=== PATIENT | female | born 1955 | race Caucasian/White ===

== ENCOUNTER 2023-02-24 13:38 | Emergency (ER) | payer SELFPAY ==
[2023-02-24 14:23] VITALS: BP 160/116; PULSE 78; RESP 16; TEMP 37.1; O2SAT 97
--- NOTE | 2023-02-24 16:45 | PC.NURSE ---
no answer when called from waiting room multiple times.
== END 2023-02-24 17:30 | disposition left against medical advice (07) ==
LOC: ANHED 16:51
DX: Z53.21 Procedure and treatment not carried out due to patient leaving prior to being seen by health care provider (principal)
CPT/HCPCS: 99199

== ENCOUNTER 2023-05-02 11:03 | Inpatient (IN) | payer MEDICARE, MEDICAID, SELFPAY ==
[2023-05-02] VITALS (52 sets, daily range): BP systolic 57–271; BP diastolic 43–212; PULSE 60–102; RESP 15–41; TEMP 35.4–37; O2SAT 94–100; BMI 18.1
--- NOTE | ~2023-05-02 | XR_ITS ---
XR chest ET placement 05/02/2023 14:28 Indication: Endotracheal tube placement Procedure: AP portable chest Comparison: 05/02/2023 Findings: Endotracheal tube tip 3.5 cm above the michelle. Cardiomegaly. There is pulmonary edema. Bila teral pleural effusions, left greater than right. No pneumothorax. NG tube passes into the stomach, t ip not evaluated. There is consolidation in the left lung base which may represent atelectasis and/or pneumonia. Impression: 1: Left basilar airspace consolidation which may represent pneumonia and/or atelectasis. 2: Cardiomegaly with pulmonary edema. 3: Bilateral pleural effusions, left greater than right. Reviewed, dictated and finalized at location B. TING SALES REPRESENTATIVE Impression: 1: Left basilar airspace consolidation which may represent pneumonia and/or ate lectasis. 2: Cardiomegaly with pulmonary edema. 3: Bilateral pleural effusions, left greater than right.
--- NOTE | ~2023-05-02 | XR_ITS ---
Portable chest x-ray Comparison: 1023 Clinical History: Respiratory failure Findings: Stable right IJ line. [id number] bilateral pleural effusions are present. There is interstitial pulmonary edema and/or chronic interstitial disease/COPD Cardiomediastinal silhouette i s stable, with pacemaker device. Bones and soft tissues are unremarkable. Impression: [id number] bilateral pleural effusions with bibasilar atelectasis. Chronic interstitial disease/COPD change and/or interstitial edema. Stable support line and pacemaker device. Reviewed, dictated and finalized at location M. E HAND Impression: [id number] bilateral pleural effusions with bibasilar atelectasis. Chronic interstitial disease/COPD change and/or interstitial edema. Stable support line and pacemaker device.
--- NOTE | ~2023-05-02 | XR_ITS ---
XR chest 1V portable 05/02/2023 11:54 Indication: Shortness of breath Procedure: AP portable chest Comparison: No prior studies for comparison. Findings: Cardiomegaly. There is pulmonary edema. Bilateral pleural effusions. No pneumothorax. Pacem chapincito leads in expected position. Impression: 1: Cardiomegaly with pulmonary edema. 2: Bilateral pleural effusions. Reviewed, dictated and finalized at location B. IAL EDUCATION RESOURCE TEACHER Impression: 1: Cardiomegaly with pulmonary edema. 2: Bilateral pleural effusions.
--- NOTE | ~2023-05-02 | XR_ITS ---
EXAMINATION: XR chest 1V portable INDICATION: Respiratory failure TECHNIQUE: Portable AP chest at 0532 hours COMPARISON: 05/03/2023 FINDINGS: The endotracheal tube ends approximately 2.9 cm above the michelle. The nasogastric tube is f ollowed as far as the stomach. Its tip is beyond the inferior margin of the radiograph. A right inter nal jugular central venous catheter ends with its tip in the distal superior vena cava. An endovascul ar stent is noted in right neck. There are small stable pleural effusions. Diffuse interstitial opaci ties persist but continued to improve. There is no pneumothorax. A dual-lead cardiac pacemaker of the left chest wall ends with leads in expected locations. Cardiomegaly is noted. IMPRESSION: 1. Diffuse lung disease with continued interval improvement, consistent with pneumonia versus pulmona ry edema. 2. Small pleural effusions, stable. 3. Cardiomegaly. Reviewed, dictated and finalized at location F. UNCTURIST IMPRESSION: 1. Diffuse lung disease with continued interval improvement, consistent with pn eumonia versus pulmonary edema. 2. Small pleural effusions, stable. 3. Cardiomegaly.
--- NOTE | ~2023-05-02 | XR_ITS ---
XR abdomen gastric tube insert INDICATION: Evaluate NG tube position. TECHNIQUE: Limited KUB perform for evaluating NG tube . COMPARISON: No prior studies for comparison. FINDINGS: NG tube tip in the stomach. Visualized bowel gas pattern is unremarkable.There are surgica l changes of ventral hernia repair. There is extensive atherosclerosis of the aorta. There are stents in the upper abdomen, likely renal artery stents. IMPRESSION: 1: NG tube tip in the stomach. Reviewed, dictated and finalized at location B. TIONAL REHABILITATION SUPERVISOR
--- NOTE | ~2023-05-02 | XR_ITS ---
EXAMINATION: XR chest port-a-cath/central DATE: 05/02/2023 15:58 INDICATION: Central line placement. TECHNIQUE: A single frontal view of the chest was obtained. COMPARISON: Chest single view at 2:26 PM FINDINGS: There are small right and moderate-sized left pleural effusions. There are widespread inter stitial and airspace opacities in the lungs with a perihilar and left basilar predominance. No pneumo thorax. Cardiomegaly is noted. There is a left chest wall pacer with leads in the right atrium and ri ght ventricle. The endotracheal tube tip is 4.0 cm above the michelle. A right internal jugular central venous catheter is seen with tip in the superior vena cava. IMPRESSION: 1. Central line tip in the superior vena cava. 2. Stable diffuse lung disease, consistent with pulmonary edema versus pneumonia. 3. Stable small right and moderate-sized left pleural effusions. 4. Cardiomegaly. Reviewed, dictated and finalized at location E. LE CLEANER IMPRESSION: 1. Central line tip in the superior vena cava. 2. Stable diffuse lung disease, consistent with pulmonary edema versus pneumoni a. 3. Stable small right and moderate-sized left pleural effusions. 4. Cardiomegaly.
--- NOTE | ~2023-05-02 | XR_ITS ---
EXAMINATION: XR chest 1V portable INDICATION: Respiratory failure TECHNIQUE: Portable AP chest at 0538 hours COMPARISON: 05/02/2023 FINDINGS: The endotracheal tube ends approximately 3.3 cm above the michelle. The nasogastric tube is f ollowed as far as the stomach. Its tip is beyond the inferior margin of the radiograph. A right inter nal jugular catheter ends with its tip in the distal superior vena cava. A small right pleural effusi on persists but has improved. There is also interval decrease in size of a now small left pleural eff usion. Diffuse interstitial opacities persist with slight improvement. There is no pneumothorax. Card iomegaly is noted. There are minimal airspace opacities of the lung bases. A dual-lead cardiac pacema ker of the left chest wall ends with leads in expected locations. IMPRESSION: 1. Diffuse lung disease with interval improvement, consistent with pneumonia versus pulmonary edema. 2. Small pleural effusions with improvement on the left. 3. Cardiomegaly. Reviewed, dictated and finalized at location F. ITAL MEDICAL BILLER IMPRESSION: 1. Diffuse lung disease with interval improvement, consistent with pneumonia ve rsus pulmonary edema. 2. Small pleural effusions with improvement on the left. 3. Cardiomegaly.
--- NOTE | 2023-05-02 11:06 | ECG_ITS ---
Measurements Intervals [place] Rate: 77 P: 50 NH: 205 QRS: -70 QRSD: 102 T: 98 QT: 419 QTc: 475 Interpretive Statements SINUS RHYTHM LEFT AXIS DEVIATION POSSIBLE ANTERIOR MYOCARDIAL INFARCTION , OF INDETERMINATE AGE Electronically Signed On 05-03-2023 13:02:01 PACKAGE DYE STAND LOADER by Terrence Sequeira M.D.
--- NOTE | 2023-05-02 11:08 | ED.SOB ---
HPI - SOB/Dyspnea General Chief Complaint: Shortness of Breath/Dyspnea Stated Complaint: sob History of Present Illness HPI Narrative: 67-year-old female with history of coronary disease and end-stage renal disease presented the emergency department for evaluation of shortness of breath. Patient was at dialysis and had worsening shortness of breath. EMS was called and patient was placed on CPAP and transferred to [facility] from [place]. patient reports she does dialysis on Friday and Friday. Patient did have dialysis on Friday was having dialysis today. Patient only had approximately 1 hour of dialysis prior to having worsening shortness of breath. Related Data Allergies Allergy/AdvReac Type Severity Reaction Status Date / Time amlodipine AdvReac Unknown Verified 05/02/23 12:09 Review of Systems Review of Systems: All systems reviewed & are unremarkable except as noted in HPI and below [facility] Social History Social History Smoking status: Unknown if ever smoked Alcohol intake: unknown Substance use: unknown Substance use type: unknown Spiritual care concerns: No Exam Narrative: APPEARANCE: uncomfortable appearing HEAD: normocephalic, atraumatic. EYES: PERRLA/EOMI, conjunctivae clear. NOSE: Normal no drainage EARS:TMS clear with good light reflex. THROAT: Pharynx clear, no exudate. NECK: Supple. No adenopathy, no masses. RESPIRATORY: Airway patent, respirations nonlabored. Clear to auscultation bilaterally, no rales, rhonchi, wheezing. CARDIOVASCULAR: Regular rate and rhythm without murmurs rubs or gallops. ABDOMINAL: Soft, nontender, nondistended, normal bowel sounds MUSCULOSKELETAL: Moves all extremities. Strength/ROM intact, No edema, No calf tenderness. NEURO: Alert. Cranial nerves II through XII intact. grossly intact SKIN: Warm, dry. Normal Color Course Course Emergency Course: 67-year-old female with end-stage renal disease presenting ED for evaluation of worsening shortness of breath. Patient arrived on CPAP and was transferred to [facility]. Patient was not tolerating BiPAP due to anxiety. Tried multiple doses of Ativan to help with her anxiety the patient continued to deteriorate. Patient ultimately needed to be intubated. central line was placed and patient was admitted to the ICU. I discussed the case with Nephrology and patient will have emergent dialysis. Suspect fluid overload versus flash pulmonary edema. Vital Signs Vital signs: Vital Signs Pulse Rate 87 05/02/23 11:15 Respiratory Rate 32 H 05/02/23 11:15 Pulse Oximetry 94 05/02/23 11:15 Oxygen Delivery BiPAP 05/02/23 11:15 Temperature 97.8 F 05/02/23 17:10 Pulse Rate 76 05/02/23 18:45 Respiratory Rate 16 05/02/23 18:00 Blood Pressure 213/113 H 05/02/23 18:45 Pulse Oximetry 94 05/02/23 18:00 Oxygen Delivery Mechanical Ventilation 05/02/23 17:02 Oxygen Flow Rate 4 05/02/23 13:01 Fraction of Inspired Oxygen 50 05/02/23 17:28 Procedures Central Line Placement Right IJ: Central Line Time: 15:43 Performed Emergently - Given emergent patient condition, temporal constraints may have precluded informed consent.: Yes Time Out Performed: Yes Patient Placed on Monitor/Pulse Ox: Yes Max. Sterile Barrier Technique: Caps, large sterile sheet and hand hygiene Central Line Prep: 2% chlorhexidine scrub and sterile drapes applied Technique: US-Guided Local Anesthetic: lidocaine 1% Amount of anesthesia used (mL): 5 Ultrasound Used for Placement: Yes Central Line Lumen Inserted: triple Post Procedure: sutured in place Post Procedure X-Ray: tip of catheter in good position Patient Tolerated Procedure: well and no complications Intubation Intubation #1: Time out performed: Yes sedative: Etomidate Mg Given: 20 paralytic: Rocuronium Mg Given: 50
[2023-05-02] MEDS: ALBUTEROL SULFATE NEB 2.5 MG/3 ML INH INHALATION ×3 (11:29→12:01)
--- NOTE | 2023-05-02 11:45 | PCRCNOTE ---
PT. DECLINED ABG; DR. WANG AWARE.
[2023-05-02 11:57] LABS: Basophils Absolute Auto 0.1 K/mm3 (0.0-0.1); Eosinophils Absolute Auto 0.6 K/mm3 (0-0.3); Eosinophils Percent Auto 9.5 % (0-4.4); Hematocrit 38.1 % (37.0-47.0); Hemoglobin 11.8 g/dL (12.0-15.0); Immature Granulocyte Absolute 0.02 K/mm3 (0.00-0.031); Immature Granulocyte Percent A 0.3 % (0-0.5); Lymphocytes Absolute Auto 0.94 K/mm3 (0.9-3.2); Mean Corpuscular Hemoglobin 31.1 pg (26-34); Mean Corpuscular Volume 100.5 fl (80-100); Mean Platelet Volume 10.6 fl (7.4-10.4); Monocytes Absolute Auto 0.4 K/mm3 (0.1-0.6); Monocytes Percent Auto 6.3 % (2.6-8.5); Neutrophils Absolute Auto 4.6 K/mm3 (1.3-6.7); Neutrophils Percent Auto 68.9 % (45.5-73.1); Platelet Count Result 259 k/mm3 (150-375); Red Blood Count 3.79 M/mm3 (4.2-5.4); Red Cell Distribution Width 16.9 % (11.5-14.5); White Blood Count 6.7 K/mm3 (4.5-10.0)
[2023-05-02 12:09] LABS: Alanine Aminotransferase 12 U/L (6-35); Albumin Level 3.9 g/dL (3.5-5.1); Alkaline Phosphatase 132 U/L (38-126); Anion Gap 12 mmol/L (8-16); Aspartate Amino Transferase 21 U/L (14-36); Bilirubin,Total 1.1 mg/dL (0.2-1.3); Blood Urea Nitrogen 41 mg/dL (7-17); Calcium 9.4 mg/dL (8.4-10.2); Carbon Dioxide 28 mmol/L (22-30); Chloride 100 mmol/L (98-107); Estimated CRCL calculation 9 ml/min; Estimated Glomerular Filt Rate 10; Glucose 110 mg/dL (65-110); Potassium 3.8 mmol/L (3.4-5.0); Sodium 140 mmol/L (137-145)
[2023-05-02 12:20] LABS: Troponin I 0.036 ng/mL (0.000-0.034)
[2023-05-02 12:33] LABS: Influenza A QL RT-PCR Negative (Negative); Influenza B QL RT-PCR Negative (Negative); RSV RNA, RT-PCR Negative (Negative); SARS-CoV-2 RNA PCR Negative (Negative)
[2023-05-02] MEDS: hydrALAZINE HCL 20 MG/ML VIAL 10 MG IV PUSH (12:33)
[2023-05-02] MEDS: LORazepam INJ (*CRX) 2 MG/ML VIAL 1 MG IV PUSH ×2 (13:08→13:34)
--- NOTE | 2023-05-02 13:08 | PC.NURSE ---
lorazepam given for anxiety, pt requesting BIPAP back on resp notified
[2023-05-02 13:37] LABS: Hepatitis B Surface Antigen Negative (Negative)
[2023-05-02 13:54] LABS: Hepatitis B Surface Antibody > 1000.00 s/c
[2023-05-02 13:59] LABS: Hepatitis B Surface Anti Res Positive
--- NOTE | 2023-05-02 14:00 | PC.NURSE ---
EDP at bedside setting up intubation. Pt being bagged. Pt refused bipap. Pt non compliant with bi pap. 50Roc being given.
--- NOTE | 2023-05-02 14:03 | PC.NURSE ---
Hospitalist at bedside. 20mg of etomide given. 7.5 trach tube inserted. 2O at the lip. Pt tolerated well.
[2023-05-02] MEDS: PROPOFOL IV EMULSION 100 ML 1.44 MG IV CONT (14:10)
--- NOTE | 2023-05-02 14:10 | PC.NURSE ---
NG inserted 60 at the lip. Propofol started. [place] cath inserted.
--- NOTE | 2023-05-02 14:11 | PC.NURSE ---
Soft restraints applied.
--- NOTE | 2023-05-02 14:19 | WPDCNINT ---
Assessment and Plan Assessment and plan (1) Acute respiratory failure: Code(s): J96.00 - Acute respiratory failure, unspecified whether with hypoxia or hypercapnia Status: Acute Assessment and Plan: Acute Respiratory failure secondary to pulmonary edema and volume overload Patient was not tolerating NIPPv and had to be emergently intubated in the ER WBC normal and chest x-ray showed bilateral pleural effusions and pulmonary edema Patient placed on CMV tidal volume 400 rate 20 peep 10 and FiO2 100% ABG pending Plan to dialyze today and remove fluid Bronchodilators (2) Pulmonary edema: Code(s): J81.1 - Chronic pulmonary edema Status: Acute Assessment and Plan: Patient's chest x-ray shows pulmonary edema and pleural effusion Likely combination of end-stage renal disease with incomplete dialysis and possible congestive heart failure Plan to dialyze patient today Check echocardiogram and BNP (3) End stage renal disease on dialysis: Code(s): N18.6 - End stage renal disease; Z99.2 - Dependence on renal dialysis Status: Acute Assessment and Plan: Nephrology consulted (4) Hypertensive emergency: Code(s): I16.1 - Hypertensive emergency Status: Acute Assessment and Plan: Patient blood pressure above 200 on presentation. She was in respiratory distress Now patient is intubated and sedated and expect blood pressure to come down. Depending on her blood pressure we will add additional medications IV p.r.n. or IV infusion (5) Elevated troponin: Code(s): R79.89 - Other specified abnormal findings of blood chemistry Status: Acute Assessment and Plan: Patient has mildly elevated troponin which could be demand mediated ischemia EKG does not show any ST elevation Patient does have history of coronary disease although details are unknown at this time Add aspirin serial troponin Plan DVT prophylaxis -SCDs Stress ulcer prophylaxis -PPI Nutrition -NPO Code Status - Full Code Total Critical Care Time - 40 minutes Due to a high probability of clinically significant, life threatening deterioration, the patient required my highest level of preparedness to intervene emergently and I personally spent this critical care time directly and personally managing the patient. This critical care time included obtaining a history; examining the patient; pulse oximetry; ordering and review of studies; arranging urgent treatment with development of a management plan; evaluation of patient's response to treatment; frequent reassessment; and discussions with other providers. It was exclusive of separately billable procedures and treating other patients and teaching time. Please see Assessment and Plan section and the rest of the note for further information on patient assessment and treatment Logging Engineer Consult Note Consult date: 05/02/23 Reason for consult: Acute respiratory failure HPI: Dina Johnson is a 67 year old female with past medical history of coronary disease and end-stage renal disease on hemodialysis Friday and bilateral below ankle amputation was brought to ER with shortness of breath. History is obtained from physician sign-out from ER and note as I was unable to obtain history directly from the patient as patient was in respiratory distress and was intubated emergently in the ER. Apparently patient did not complete her dialysis today and was sent to [facility]. In ER patient was found to be hypertensive hypoxic and in respiratory distress. She was initially placed on CPAP at that BiPAP without any significant improvement. Patient was delirious agitated and ripping her BiPAP off multiple times and trying to get out of bed. Patient was given multiple dose of Ativan without any significant improvement. Patient was confused. When I went to see the patient patient was holding her BiPAP mask in her hand and yelling that she could not br
--- NOTE | 2023-05-02 14:47 | PCRCNOTE ---
Dr. Stone aware Pt. has Fistulas in both arms; Dr. Stone states to stick Pt. in the right arm for the ABG.
[2023-05-02 14:51] LABS: NT Pro B Type Natriuretic Pept > 30000 pg/mL (19.9-100)
[2023-05-02 14:58] LABS: Procalcitonin 0.3 ng/mL
--- NOTE | 2023-05-02 15:10 | PM.IMHP ---
H&P: HPI History of Present Illness Date/Time: 05/02/23 15:10 Chief Complaint: SOB Narrative: 67 y/o F presented here with SOB with PMH of CAD, transmetatarsal amputation bilaterally, and ESRD on HD (M/W/F). History obtained through chart review and ED provider report due to emergent and activation. Patient currently receives dialysis at [facility] in [place], during treatment she became more short of breath with increased breathing. She was only able to complete 1 hour of dialysis before shortness of breath was not tolerable. She reported that she had not felt well for a few days prior to dialysis treatment. EMS placed patient on CPAP and she was transferred to [place] ED. After arrival she was transferred to BiPAP. She was able to briefly tolerate before becoming anxious. Multiple doses of Ativan attempted to alleviate anxiety but patient was ultimately not able to tolerate BiPAP, continuing to take off mask. Work of breathing increased and patient became agitated. Due to deterioration, patient was intubated and central line was placed. Admitted to the ICU for HD and ventilator support. Patient has not received care at this facility prior to today. Was A&Ox4 prior to intubation/sedation. [facility] Past Medical History Medical History CAD (coronary atherosclerotic disease) End stage renal disease on dialysis Surgical History Surgical History History of arteriovenostomy for renal dialysis bilateral History of transmetatarsal amputation of left foot History of transmetatarsal amputation of right foot Family History Family History Other Unknown family medical history Social History Social History Smoking status: Unknown if ever smoked Alcohol intake: unknown Substance use: unknown Substance use type: unknown Spiritual care concerns: No Meds Home Medications and Allergies Allergies Allergy/AdvReac Type Severity Reaction Status Date / Time amlodipine AdvReac Unknown Verified 05/02/23 12:09 Vital Signs Vital Signs - 24 hr 05/02/23 11:15 05/02/23 11:26 05/02/23 11:42 Temperature 98.0 F Pulse Rate 87 78 Respiratory Rate 32 H 16 Blood Pressure 207/105 H Pulse Oximetry 94 100 Oxygen Delivery BiPAP Room Air BiPAP Oxygen Flow Rate Fraction of Inspired Oxygen 05/02/23 11:29 05/02/23 12:08 05/02/23 11:34 Temperature 97.8 F Pulse Rate 79 78 85 Respiratory Rate 18 16 22 H Blood Pressure 230/98 H 220/108 H Pulse Oximetry 99 98 Oxygen Delivery Oxygen Flow Rate Fraction of Inspired Oxygen 05/02/23 12:20 05/02/23 12:24 05/02/23 12:37 Temperature Pulse Rate 79 82 78 Respiratory Rate 20 24 H 23 H Blood Pressure 229/123 H Pulse Oximetry 94 95 Oxygen Delivery BiPAP Oxygen Flow Rate Fraction of Inspired Oxygen 05/02/23 13:01 05/02/23 13:20 05/02/23 14:15 Temperature Pulse Rate 86 79 Respiratory Rate 41 H Blood Pressure Pulse Oximetry 98 97 100 Oxygen Delivery Nasal Cannula BiPAP Mechanical Ventilation Oxygen Flow Rate 4 Fraction of Inspired Oxygen 100 Exam Const: Other: In distress, agitated, uncomfortable prior to intubation. Post intubation and sedation: No acute distress or signs of discomfort. HENMT: Face/Nose/Sinus: Normal nares present Mouth: Yes moist mucous membranes Eyes: General: appearance normal, both eyes and all related structures Sclera: sclerae normal Pupils: Equal, round and reactive pupils present EOM: EOMs intact bilaterally Resp: Other: +Respiratory distress with associated accessory muscle use and agitation prior to intubation. Currently intubated - coarse lung sounds, bibasilar crackles, decreased at bases. Cardio: Rate: tachycardic Rhythm: regular rhyth
[2023-05-02 15:11] LABS: Alveolar/Arterial O2 Gradient 376.6 mmHg; Base Excess ABG 2.2 mEq/l (+/-2.0); Fractional Inspired Oxygen 100 %; Oxygen Content ABG 18.1 %vol (16.0-22.0); Oxygen Saturation ABG 99.7 % (95.0-100.0); Oxyhemoglobin 97.1 % THb (90.0-100.0); PCO2 ABG 42.6 mmHg (35.0-45.0); PO2 ABG 293.8 mmHg (80.0-100.0); PO2 FiO2 Ratio Arterial Blood 2.94 %; Total Hemoglobin 12.7 g/dL (12.0-18.0)
[2023-05-02 15:13] LABS: Device VENTILATOR; Modified Allen's Test Pass; Site Drawn RIGHT RADIAL
[2023-05-02 15:14] LABS: Arterial Blood Gas PEEP 10 cmH2O; Arterial Blood Gas Pressure Support 0 cmH2O; Arterial Blood Gas Tidal Volume 400 ml; Arterial Blood Gas Vent Mode CMV; Arterial Blood Gas Ventilator rate 20 /MIN
--- NOTE | 2023-05-02 15:32 | PM.CNNEP ---
Assessment and Plan Assessment and plan (1) End stage renal disease: Code(s): N18.6 - End stage renal disease Status: Chronic Assessment and Plan: outpatient schedule is Fri/Fri/Fridays only partial treatment earlier today (bout 1 hour and 15min of treatment) however, stable electrolytes and acid-base status given fluid status, DUF today for fluid removal as tolerated depending on CXR and electrolytes, may need HD tomorrow as well follows with Dr. Enzo Shelton at [facility] (2) Acute respiratory failure: Code(s): J96.00 - Acute respiratory failure, unspecified whether with hypoxia or hypercapnia Status: Acute Assessment and Plan: due to pulmonary edema and volume overload admission CXR seems to support this intubated due to intolerance to BiPAP and altered mental status fluid removal with DUF today may need another HD treatment depending on response to DUF today ventilator weaning when more stable (3) Pulmonary edema: Code(s): J81.1 - Chronic pulmonary edema Status: Acute Assessment and Plan: etiology? from my discussion with outatient dialysis unit, compliant with treatments and does not have large fluid gains was pretty close to dry weight on presentation to dialysis treatment today possible flash pulmonary edema due to hypertensive urgency(?) follow-up on echo fluid removal with HD/DUF (4) Hypertensive emergency: Code(s): I16.1 - Hypertensive emergency Status: Acute Assessment and Plan: blood pressure above 200 on presentation this was associated with respiratory distress now intubated and sedated -- suspect BP will improve follow hemodynamics with mechanical ventilation and dialysis/DUF today (5) Elevated troponin: Code(s): R79.89 - Other specified abnormal findings of blood chemistry Status: Acute Assessment and Plan: noted on admission suspect demand mediated ischemia from elevated BP and respiratory failure EKG without ischemic changes follow repeat troponins (6) Anemia: Code(s): D64.9 - Anemia, unspecified Status: Chronic Assessment and Plan: due to ESRD H/H at goal if no supratherapeutic hold Epogen for now follow trend of H/H I will continue follow the patient with you while she remains hospitalized and make further recommendations as needed. Thank you for allowing me to participate in the care this patient. History of Present Illness Reason for Consult Consult date: 05/02/23 Reason for consult: end stage renal disease Chief Complaint Chief complaint: HTN/Pulmonary Edema/Hypoxia History of Present Illness Narrative: Most of the information that I have is from review of the electronic medical record, discussion with the ER physician, and discussion with her outpatient dialysis clinic as the patient is unable to provide me with any history as she is currently intubated and on mechanical ventilation. The patient is a 67-year-old female with a past medical history as outlined below who was transferred to [facility] Emergency room from her dialysis center for further evaluation of increasing shortness of breath/respiratory distress. The patient was approximately 1 hr into her outpatient dialysis treatment earlier today when she became increasingly more short of breath and uncomfortable. She reported that she felt unwell prior to initiation of her dialysis treatment today but the specifics are not clear. As her shortness of breath became on tolerable her dialysis treatment was aborted and EMS was called. She was subsequently transferred to [facility] Emergency room for further assessment. In route to the emergency room, EMS applied CPAP in effort to try to stabilize her respiratory status. By the time of her arrival to the emergency room, she was still in mild respiratory distress so CPAP was transitioned over to BiPAP therapy
--- NOTE | 2023-05-02 15:32 | P.CONNP_ITS ---
Assessment and Plan Assessment and plan (1) End stage renal disease: Code(s): N18.6 - End stage renal disease Status: Chronic Assessment and Plan: * outpatient schedule is Fri/Fri/Fridays * only partial treatment earlier today (bout 1 hour and 15min of treatment) * however, stable electrolytes and acid-base status * given fluid status, DUF today for fluid removal as tolerated * depending on CXR and electrolytes, may need HD tomorrow as well * follows with Dr. Enzo Shelton at [facility] (2) Acute respiratory failure: Code(s): J96.00 - Acute respiratory failure, unspecified whether with hypoxia or hypercapnia Status: Acute Assessment and Plan: * due to pulmonary edema and volume overload * admission CXR seems to support this * intubated due to intolerance to BiPAP and altered mental status * fluid removal with DUF today * may need another HD treatment depending on response to DUF today * ventilator weaning when more stable (3) Pulmonary edema: Code(s): J81.1 - Chronic pulmonary edema Status: Acute Assessment and Plan: * etiology? * from my discussion with outatient dialysis unit, compliant with treatments and does not have large fluid gains * was pretty close to dry weight on presentation to dialysis treatment today * possible flash pulmonary edema due to hypertensive urgency(?) * follow-up on echo * fluid removal with HD/DUF (4) Hypertensive emergency: Code(s): I16.1 - Hypertensive emergency Status: Acute Assessment and Plan: * blood pressure above 200 on presentation * this was associated with respiratory distress * now intubated and sedated -- suspect BP will improve * follow hemodynamics with mechanical ventilation and dialysis/DUF today (5) Elevated troponin: Code(s): R79.89 - Other specified abnormal findings of blood chemistry Status: Acute Assessment and Plan: * noted on admission * suspect demand mediated ischemia from elevated BP and respiratory failure * EKG without ischemic changes * follow repeat troponins (6) Anemia: Code(s): D64.9 - Anemia, unspecified Status: Chronic Assessment and Plan: * due to ESRD * H/H at goal if no supratherapeutic * hold Epogen for now * follow trend of H/H I will continue follow the patient with you while she remains hospitalized and make further recommendations as needed. Thank you for allowing me to participate in the care this patient. History of Present Illness Reason for Consult Consult date: 05/02/23 Reason for consult: end stage renal disease Chief Complaint Chief complaint: HTN/Pulmonary Edema/Hypoxia History of Present Illness Narrative: Most of the information that I have is from review of the electronic medical record, discussion with the ER physician, and discussion with her outpatient dialysis clinic as the patient is unable to provide me with any history as she is currently intubated and on mechanical ventilation. The patient is a 67-year-old female with a past medical history as outlined below who was transferred to [facility] Emergency room from her dialysis center for further evaluation of increasing shortness of breath/respiratory distress. The patient was approximately 1 hr into her outpatient dialysis treatment earlier today when she became increasingly more short of breath and uncomfortable. She reported that she felt unwell prior to initiation of her dialysis treatment today but the specifics are not clear. As her shortness of b
[2023-05-02] MEDS: dexmedeTOMIDine 400 MCG/100 ML 400 MCG/100 ML BAG IV CONT (16:03)
--- NOTE | 2023-05-02 16:07 | PC.NURSE ---
Precedex started per JUL. Pt currently sedated, but frequently coughing and high peak pressures despite suctioning with minimal out.
--- NOTE | 2023-05-02 17:38 | ADMGEN ---
This patient, Dina Johnson, was admitted to Intensive Care Unit-7. Patient/family oriented to hospital policies and general routines including ID bracelet, bed and alarms, visiting hours, pain management, procedures, bathroom and other care routines, personal items, smoking policy, room service/diet, and visiting hours. Information on how to activate the Rapid Response Team has been discussed. Patient/Family are encouraged to report perceived risks to care and to ask questions if they do not understand what they are told or what they should do.
--- NOTE | 2023-05-02 17:52 | PC.NURSE ---
Pt sister called pt's cell phone and this nurse talked to sister of condition status, caitlinmily Mills [phone]
[2023-05-02 18:14] LABS: Glucose Point of Care 74 mg/dl (65-105)
[2023-05-02 21:41] LABS: Triglycerides 166 mg/dL (<150)
[2023-05-02] MEDS: MINERAL OIL/WHITE PETROLATUM OINTMENT 1 APPLIC EACH EYE (21:56)
[2023-05-02] MEDS: CENTRAL LINE FLUSH 10 ML IV PUSH (21:56)
[2023-05-02] MEDS: LABETALOL HCL INJ 100 MG/20 ML VIAL 20 MG IV PUSH (21:56)
[2023-05-02 21:58] LABS: Hematocrit 42.2 % (37.0-47.0); Hemoglobin 12.9 g/dL (12.0-15.0); Mean Corpuscular HGB Conc 30.6 g/dl (32-36); Mean Corpuscular Volume 101.4 fl (80-100); Mean Platelet Volume 10.8 fl (7.4-10.4); Platelet Count Result 282 k/mm3 (150-375); Red Blood Count 4.16 M/mm3 (4.2-5.4); Red Cell Distribution Width 16.8 % (11.5-14.5); White Blood Count 9.9 K/mm3 (4.5-10.0)
[2023-05-02 21:59] LABS: Troponin I 0.047 ng/mL (0.000-0.034)
[2023-05-02 22:11] LABS: Fibrinogen 481 mg/dl (215-510); INR 1.1
[2023-05-02] MEDS: CELLULOSE OXIDIZED 2 x 14 INCH 1 PKT XX (22:36)
[2023-05-03] VITALS (54 sets, daily range): BP systolic 65–207; BP diastolic 44–110; PULSE 60–75; RESP 18–39; TEMP 35.3–38.1; O2SAT 91–99
--- NOTE | 2023-05-03 | ECHO_ITS ---
Patient Info Name: Dina Johnson Age: 67 years : 1955 Gender: Female Ht: 64 in Wt: 105 lbs BSA: 1.46 m2 HR: 77 bpm BP: 229 / 123 mmHg Heart Rhythm: Sinus Rhythm Technical Quality: Good Exam Date: 05/03/2023 8:51 AM Exam Location: Echo Lab Patient Status: Inpatient Admit Date: 05/02/2023 Staff Ordering Physician: Pillo Stone MD Denial Management Representative: Diamond Gamino RDCS Attending Provider: Emma Turner MD Exam Type: CA echo doppler color flow Study Info Indications - CHF Complete two-dimensional, color flow and Doppler transthoracic echocardiogram is performed. Summary 1. Complete two-dimensional, color flow and Doppler transthoracic echocardiogram is performed. Recommendations * Normal LV size, severe LV thickening, mild to moderate LV systolic dysfunction, ejection fraction 40-45%; diastolic dysfunction present with elevated left heart pressures. Linear artifact is seen in the RA/RV. Normal RV size and systolic function. Moderate mitral annular calcification. Trace MR. Mild aortic valve calcification, mild aortic stenosis, calculated HARRY 1.8 cm2. Mild tricuspid regurgitation. RVSP 36 mmHg. Left Ventricle Left ventricular systolic function is moderately reduced, estimated at 40-45%. There is severely increased left ventricular wall thickness. The left ventricular diastolic function is abnormal. E/e' 14.9 is abnormal. Right Ventricle Right ventricular chamber dimension is normal. Right ventricular systolic function is normal. Left Atria Left atrial chamber dimension is normal. Right Atria Right atrial chamber dimension is normal. Linear artifact in the right atrium suggestive of catheter(s), pacemaker lead(s), or ICD lead(s). Aortic Valve There is mild aortic valve stenosis with a peak velocity of 126 cm/s, mean gradient of 3 mmHg, and aortic valve area of 1.8 cm2. There is mild aortic valve calcification. Pulmonic Valve The pulmonic valve is normal. Mitral Valve There is trace mitral valve regurgitation. The mitral valve annulus is moderately calcified. Tricuspid Valve The tricuspid valve leaflets are normal. There is mild tricuspid valve regurgitation. Pericardium/Pleural The pericardium appears normal. Aorta The aortic root size at the sinus of Valsalva is normal. Left Ventricular Outflow Tract Name Value Normal LVOT 2D LVOT Diameter 1.8 cm LVOT Doppler LVOT Peak Gradient 3 mmHg LVOT Mean Gradient 1 mmHg LVOT VTI 14 cm LVOT VTI/AV VTI Ratio 0.7 LVOT Stroke Volume 37 ml LVOT CO 2.4 l/min LVOT CI 1.6 l/min/m2 Pulmonic Valve Name Value Normal RVOT Doppler RVOT Peak Gradient 1 mmHg PV Doppler PV Peak Gradien
[2023-05-03] MEDS: LABETALOL HCL INJ 100 MG/20 ML VIAL 20 MG IV PUSH (00:20)
[2023-05-03 00:29] LABS: Glucose Point of Care 79 mg/dl (65-105)
--- NOTE | 2023-05-03 03:28 | PC.NURSE ---
Patient unable to state home meds. Home meds completed using external med history and papers from renal center. If unable to verify medication as being currently filled it was not added to list.
[2023-05-03] MEDS: PROPOFOL IV EMULSION 100 ML 5.76 MG IV CONT (04:44)
[2023-05-03 05:31] LABS: Alveolar/Arterial O2 Gradient 293.5 mmHg; Base Excess ABG 3.9 mEq/l (+/-2.0); Carboxyhemoglobin 0.4 % THb (0-2.0); Fractional Inspired Oxygen 50 %; HCO3 ABG 26.9 mEq/l (22.0-26.0); Methemoglobin ABG 0.2 %THb (0-1.5); Oxygen Content ABG 18.4 %vol (16.0-22.0); Oxygen Saturation ABG 97.5 % (95.0-100.0); Oxyhemoglobin 95.7 % THb (90.0-100.0); PCO2 ABG 35.3 mmHg (35.0-45.0); PO2 ABG 89.2 mmHg (80.0-100.0); PO2 FiO2 Ratio Arterial Blood 1.78 %; Reduced Hemoglobin 3.7 %THb (0-5.0); Total Hemoglobin 13.6 g/dL (12.0-18.0)
[2023-05-03 05:46] LABS: Modified Allen's Test Pass; Site Drawn LEFT RADIAL
[2023-05-03 05:47] LABS: Arterial Blood Gas PEEP 10 cmH2O; Arterial Blood Gas Tidal Volume 400 ml; Arterial Blood Gas Vent Mode CMV; Arterial Blood Gas Ventilator rate 20 /MIN; Device VENTILATOR
[2023-05-03 05:50] LABS: Basophils Absolute Auto 0.1 K/mm3 (0.0-0.1); Basophils Percent Auto 0.4 % (0.2-1.2); Eosinophils Absolute Auto 0.1 K/mm3 (0-0.3); Eosinophils Percent Auto 1.2 % (0-4.4); Hematocrit 36.9 % (37.0-47.0); Hemoglobin 11.3 g/dL (12.0-15.0); Immature Granulocyte Absolute 0.06 K/mm3 (0.00-0.031); Immature Granulocyte Percent A 0.5 % (0-0.5); Lymphocytes Percent Auto 7.6 % (18.3-44.2); Mean Corpuscular HGB Conc 30.6 g/dl (32-36); Mean Corpuscular Volume 101.1 fl (80-100); Mean Platelet Volume 10.6 fl (7.4-10.4); Monocytes Absolute Auto 0.7 K/mm3 (0.1-0.6); Monocytes Percent Auto 5.6 % (2.6-8.5); Neutrophils Absolute Auto 10.1 K/mm3 (1.3-6.7); Neutrophils Percent Auto 84.7 % (45.5-73.1); Platelet Count Result 245 k/mm3 (150-375); Red Blood Count 3.65 M/mm3 (4.2-5.4); Red Cell Distribution Width 16.9 % (11.5-14.5); White Blood Count 11.9 K/mm3 (4.5-10.0)
[2023-05-03] MEDS: CENTRAL LINE FLUSH 10 ML IV PUSH ×3 (05:52→20:40)
[2023-05-03 06:08] LABS: Alanine Aminotransferase 10 U/L (6-35); Albumin Level 3.4 g/dL (3.5-5.1); Alkaline Phosphatase 125 U/L (38-126); Anion Gap 14 mmol/L (8-16); Aspartate Amino Transferase 20 U/L (14-36); Bilirubin,Total 1.1 mg/dL (0.2-1.3); Blood Urea Nitrogen 49 mg/dL (7-17); Calcium 9.4 mg/dL (8.4-10.2); Carbon Dioxide 26 mmol/L (22-30); Chloride 100 mmol/L (98-107); Estimated CRCL calculation 8 ml/min; Estimated Glomerular Filt Rate 8; Glucose 79 mg/dL (65-110); Magnesium 2.4 mg/dL (1.6-2.3); Phosphorus 6.6 mg/dL (2.5-4.5); Potassium 3.7 mmol/L (3.4-5.0); Sodium 140 mmol/L (137-145)
--- NOTE | 2023-05-03 09:52 | PM.IMPN ---
Progress Note: A&P Assessment and Plan (1) Acute respiratory failure: Code(s): J96.00 - Acute respiratory failure, unspecified whether with hypoxia or hypercapnia Status: Acute Assessment and Plan: Patient was at dialysis and developed shortness of breath. Patient started on BiPAP had increasing work of breathing and agitation. Patient was emergently intubated on 05/02 and admitted to the ICU. CXR showed cardiomegaly with pulmonary edema and bilateral pleural effusions. RSV, COVID and influenza PCR negative. Suspect volume overload related to incomplete dialysis treatment. PNA felt less likely. Could be related to malignant HTN. BP better. Has had HD. Wean vent as tolerated Appreciate commercial account manager input. Discussed with commercial account manager (2) Pulmonary edema: Code(s): J81.1 - Chronic pulmonary edema Status: Acute Assessment and Plan: CXR showed cardiomegaly with pulmonary edema and bilateral pleural effusions. BNP>30K. Volume overload from incomplete HD with new/acute on chronic HF - no prior treatment at this facility and limited hx provided. Echo pending Hemodialysis to control fluid status (3) End stage renal disease on dialysis: Code(s): N18.6 - End stage renal disease; Z99.2 - Dependence on renal dialysis Status: Acute Assessment and Plan: Nephrology consulted. Receives HD on //. HD treatment in evening on 05/02. HD per cheesemaker helper. Appreciate nephrology input (4) Hypertensive emergency: Code(s): I16.1 - Hypertensive emergency Status: Acute Assessment and Plan: Hypertensive on arrival. SBP as high as 271 but mostly 200-240 BP improved and actually dropped to 66/53 last evening. Adjust BP meds to keep SBP around 180 for now (5) Elevated troponin: Code(s): R79.89 - Other specified abnormal findings of blood chemistry Status: Acute Assessment and Plan: Troponin elevated but flat. EKG did not show any acute ST elevations or acute ischemic pattern. [place] related to fluid overload and devere HTN ASA daily. (6) Breast mass: Code(s): N63.0 - Unspecified lump in unspecified breast Status: Acute Assessment and Plan: Possible left breast mass. Feels similar to right side. No appreciable adenopathy. Defer workup at this time (7) Anemia: Code(s): D64.9 - Anemia, unspecified Status: Chronic Assessment and Plan: Hgb only mildly low but has macrocytosis. Check b12/folate Plan Diet: NPO GI Prophylaxis: Pantoprazole IVP DVT Prophylaxis: SCDs Lines: pIV, right IJ central line Code Status: Full Code Subjective Date/time seen: 05/03/23 09:52 Interval history: 67yo female with ESRD, CAD and transmetatarsal amputation here for shortness of breath. Patient intubated and sedated and unable to provide hx. Review of Systems Review of Systems: ROS unobtainable: Yes unobtainable due to endotracheal tube Exam Narrative: Tm 100.5 99.2 111/66 73 20 91% MV Gen -thin female who is intubated and sedated HEENT -ET tube and OG tube secured. Neck -right IJ TLC secured. Chest -coarse breath sounds anteriorly with left flank inspiratory crackles. Breast - nodular breast mass left appreciated with similar nodularity to the right. No nipple discharge. No axillary LNE CV - RRR S1/S2. Telemetry showing normal sinus rhythm with occasional sinus arrhythmia. Abd -soft. Positive bowel sounds. Nondistended. -[place] secured with scant amount of yellow urine bag. Ext - No pedal edema. Status post bilateral transmetatarsal amputation. Thrill and bruit left upper extremity fistula Neuro -patient awakens easily Psych -unable to assess Skin - Warm and dry Objective Data Vital Signs Vital Signs: Vital Signs - 24 hr 05/02/23 11:15 05/02/23 11:26 05/02/23 11:42 Temperature 98.0 F Pulse Rate 87 78 Respiratory Rate 32 H 16 Blood Pressure 207/105
[2023-05-03] MEDS: MINERAL OIL/WHITE PETROLATUM OINTMENT 1 APPLIC EACH EYE ×2 (10:18→20:23)
[2023-05-03] MEDS: ASPIRIN 325 MG TABLET FEED TUBE (10:19)
[2023-05-03] MEDS: PANTOPRAZOLE SODIUM IV 40 MG VIAL IV PUSH (10:19)
[2023-05-03] MEDS: carvediloL 12.5 MG TABLET FEED TUBE ×2 (10:32→20:23)
--- NOTE | 2023-05-03 10:42 | WPDINTPN ---
Progress Note: A&P Assessment and Plan (1) Acute respiratory failure: Code(s): J96.00 - Acute respiratory failure, unspecified whether with hypoxia or hypercapnia Status: Acute Assessment and Plan: Acute Respiratory failure secondary to pulmonary edema and volume overload Patient was not tolerating NIPPv and had to be emergently intubated in the ER WBC normal and chest x-ray showed bilateral pleural effusions and pulmonary edema Vent settings reviewed. Decrease PEEP to 8 decrease tidal volume to 360 and rate to 18 Chest x-ray reviewed and shows persistent diffuse lung disease although with improvement. Patient will need additional dialysis for fluid removal ABG reviewed Bronchodilators (2) Pulmonary edema: Code(s): J81.1 - Chronic pulmonary edema Status: Acute Assessment and Plan: Patient's chest x-ray shows pulmonary edema and pleural effusion Likely combination of end-stage renal disease with incomplete dialysis and possible congestive heart failure 05/02 patient was dialyzed and 2.5 L fluid was removed Patient does need additional dialysis Her BNP was more than 30,000 Echocardiogram pending (3) End stage renal disease on dialysis: Code(s): N18.6 - End stage renal disease; Z99.2 - Dependence on renal dialysis Status: Acute Assessment and Plan: Nephrology consulted and patient was dialyzed yesterday. Will discuss with Nephrology regarding dialysis again today (4) Hypertensive emergency: Code(s): I16.1 - Hypertensive emergency Status: Acute Assessment and Plan: Patient blood pressure above 200 on presentation. She was in respiratory distress Now patient is intubated and sedated and her blood pressure has come down Will not treat blood pressure unless more than 180 for another 24 hours then resume her medications (5) Elevated troponin: Code(s): R79.89 - Other specified abnormal findings of blood chemistry Status: Acute Assessment and Plan: Patient has mildly elevated troponin which is likely demand mediated ischemia EKG does not show any ST elevation Patient does have history of coronary disease although details are unknown at this time Serial troponin remained flat Continue aspirin aspirin beta-carmen Echo is pending Plan DVT prophylaxis -SCDs, lovenox Stress ulcer prophylaxis -PPI Nutrition -start tube feeds Code Status - Full Code Total Critical Care Time -32 minutes Due to a high probability of clinically significant, life threatening deterioration, the patient required my highest level of preparedness to intervene emergently and I personally spent this critical care time directly and personally managing the patient. This critical care time included obtaining a history; examining the patient; pulse oximetry; ordering and review of studies; arranging urgent treatment with development of a management plan; evaluation of patient's response to treatment; frequent reassessment; and discussions with other providers. It was exclusive of separately billable procedures and treating other patients and teaching time. Please see Assessment and Plan section and the rest of the note for further information on patient assessment and treatment Subjective Date/time seen: 05/03/23 Patient was dialyzed yesterday and 2.5 L fluid was removed Remains on mechanical ventilation and sedated. On decreasing sedation patient follows commands Blood pressure improved on sedation. Occasional low-grade fevers Interval history: 67yo female with ESRD, CAD and transmetatarsal amputation here acute respiratory failure Review of Systems Review of Systems: ROS unobtainable: Yes unobtainable due to endotracheal tube, unobtainable due to medical condition and unobtainable due to mental status Exam Narrative: General: Pt is now sedated, intubated and on mechanical ventilation Lungs/Chest: Trachea central Coarse BS B/L, bibasilar crackles, coarse breathing,
[2023-05-03] MEDS: dexmedeTOMIDine 400 MCG/100 ML 400 MCG/100 ML BAG IV CONT (11:49)
[2023-05-03] MEDS: SEVELAMER CARBONATE 800 MG TABLET FEED TUBE ×2 (11:58→17:30)
[2023-05-03] MEDS: RANOLAZINE 500 MG TAB.ER.12H PO ×2 (11:58→20:23)
[2023-05-03 12:06] LABS: Glucose Point of Care 85 mg/dl (65-105)
--- NOTE | 2023-05-03 14:31 | P.PNNP_ITS ---
Progress Note: A&P Assessment and Plan (1) End stage renal disease: Code(s): N18.6 - End stage renal disease Status: Chronic Assessment and Plan: * outpatient schedule is Fri/Fri/Fridays * only partial treatment earlier today (bout 1 hour and 15min of treatment) * Electrolytes look okay. * Still on 50% oxygen and cannot get off the ventilator yet. * Patient did not tolerate dialysis very well yesterday. Today, however, her blood pressure is high. * Will try dry ultrafiltration today and see if blood pressure tolerates this better. * Discussed with Dr. Stone and dialysis nurse. * follows with Dr. Enzo Shelton at [facility] (2) Acute respiratory failure: Code(s): J96.00 - Acute respiratory failure, unspecified whether with hypoxia or hyperca pnia Status: Acute Assessment and Plan: * due to pulmonary edema and volume overload * admission CXR seems to support this * intubated due to intolerance to BiPAP and altered mental status * fluid removal with DUF today * ventilator weaning when more stable (3) Pulmonary edema: Code(s): J81.1 - Chronic pulmonary edema Status: Acute Assessment and Plan: * etiology? * from my discussion with outatient dialysis unit, compliant with treatments and does not have large fluid gains * was pretty close to dry weight on presentation to dialysis treatment today * possible flash pulmonary edema due to hypertensive urgency(?) * Echo shows mildly reduced LV systolic function and some diastolic dysfunction with high LVEDP. * fluid removal with HD/DUF (4) Hypertensive emergency: Code(s): I16.1 - Hypertensive emergency Status: Acute Assessment and Plan: * blood pressure low yesterday with dialysis. now high again. (5) Elevated troponin: Code(s): R79.89 - Other specified abnormal findings of blood chemistry Status: Acute Assessment and Plan: * noted on admission * suspect demand mediated ischemia from elevated BP and respiratory failure * EKG without ischemic changes * Troponins barely high and stable. (6) Anemia: Code(s): D64.9 - Anemia, unspecified Status: Chronic Assessment and Plan: * due to ESRD * H/H high enough that she does not need SEBASTIAN. * follow trend of H/H Subjective Date/time seen: 05/03/23 14:31 Review of Systems Cardiovascular: Cardiovascular: Reports no additional cardiovascular complaints Respiratory: Respiratory: Reports no additional respiratory complaints Gastrointestinal: Gastrointestinal: Reports no additional gastrointestinal complaints Genitourinary: Genitourinary: Reports no additional female genitourinary complaints Exam Narrative: WDWN female on the ventilator and sedated. skin no rash head ncat lungs coarse bilaterally cor reg no rub abd BS+ nontender and soft ext no edema. Objective Data Vital Signs Vital Signs: Vital Signs - 24 hr 05/02/23 15:17 05/02/23 14:33 05/02/23 14:45 Temperature 98.0 F 98.1 F Pulse Rate 96 78 Respiratory Rate 20 20 Blood Pressure 228/124 H Pulse Oximetry 100 100 Oxygen Delivery Mechanical Ventilation Fraction of Inspired Oxygen 50 05/02/23 14:48 05/02/23 15:00 05/02/23 15:24 Temperature 98.1 F 98.1 F 97.3 F L
--- NOTE | 2023-05-03 14:31 | PM.PNNEP ---
Progress Note: A&P Assessment and Plan (1) End stage renal disease: Code(s): N18.6 - End stage renal disease Status: Chronic Assessment and Plan: outpatient schedule is Fri/Fri/Fridays only partial treatment earlier today (bout 1 hour and 15min of treatment) Electrolytes look okay. Still on 50% oxygen and cannot get off the ventilator yet. Patient did not tolerate dialysis very well yesterday. Today, however, her blood pressure is high. Will try dry ultrafiltration today and see if blood pressure tolerates this better. Discussed with Dr. Stone and dialysis nurse. follows with Dr. Enzo Shelton at [facility] (2) Acute respiratory failure: Code(s): J96.00 - Acute respiratory failure, unspecified whether with hypoxia or hypercapnia Status: Acute Assessment and Plan: due to pulmonary edema and volume overload admission CXR seems to support this intubated due to intolerance to BiPAP and altered mental status fluid removal with DUF today ventilator weaning when more stable (3) Pulmonary edema: Code(s): J81.1 - Chronic pulmonary edema Status: Acute Assessment and Plan: etiology? from my discussion with outatient dialysis unit, compliant with treatments and does not have large fluid gains was pretty close to dry weight on presentation to dialysis treatment today possible flash pulmonary edema due to hypertensive urgency(?) Echo shows mildly reduced LV systolic function and some diastolic dysfunction with high LVEDP. fluid removal with HD/DUF (4) Hypertensive emergency: Code(s): I16.1 - Hypertensive emergency Status: Acute Assessment and Plan: blood pressure low yesterday with dialysis. now high again. (5) Elevated troponin: Code(s): R79.89 - Other specified abnormal findings of blood chemistry Status: Acute Assessment and Plan: noted on admission suspect demand mediated ischemia from elevated BP and respiratory failure EKG without ischemic changes Troponins barely high and stable. (6) Anemia: Code(s): D64.9 - Anemia, unspecified Status: Chronic Assessment and Plan: due to ESRD H/H high enough that she does not need SEBASTIAN. follow trend of H/H Subjective Date/time seen: 05/03/23 14:31 Review of Systems Cardiovascular: Cardiovascular: Reports no additional cardiovascular complaints Respiratory: Respiratory: Reports no additional respiratory complaints Gastrointestinal: Gastrointestinal: Reports no additional gastrointestinal complaints Genitourinary: Genitourinary: Reports no additional female genitourinary complaints Exam Narrative: WDWN female on the ventilator and sedated. skin no rash head ncat lungs coarse bilaterally cor reg no rub abd BS+ nontender and soft ext no edema. Objective Data Vital Signs Vital Signs: Vital Signs - 24 hr 05/02/23 15:17 05/02/23 14:33 05/02/23 14:45 Temperature 98.0 F 98.1 F Pulse Rate 96 78 Respiratory Rate 20 20 Blood Pressure 228/124 H Pulse Oximetry 100 100 Oxygen Delivery Mechanical Ventilation Fraction of Inspired Oxygen 50 05/02/23 14:48 05/02/23 15:00 05/02/23 15:24 Temperature 98.1 F 98.1 F 97.3 F L Pulse Rate 76 78 95 Respiratory Rate 20 20 20 Blood Pressure 184/71 H Pulse Oximetry 100 98 Oxygen Delivery Fraction of Inspired Oxygen 05/02/23 15:30 05/02/23 15:32 05/02/23 16:03 Temperature 97.2 F L 97.6 F Pulse Rate 96 92 75 Respiratory Rate 28 H 22 H 20 Blood Pressure 244/136 H Pulse Oximetry 97 97 Oxygen Delivery Fraction of Inspired Oxygen 05/02/23 16:36 05/02/23 15:33 05/02/23 15:45 Temperature 97.7 F 97.6 F Pulse Rate 84 90 91 Respiratory Rate 20 20 24 H Blood Pressure Pulse Oximetry 98 98 Oxygen Delivery Fraction of Inspired Oxygen 05/02/23 15:47 05/02/23 16:03 05/02/23 16:19 Temperature 97.7 F 98.2 F 98.2 F Pulse
[2023-05-03] MEDS: SODIUM CHLORIDE 0.9% IV 1,000 ML 999 ML IV CONT (16:50)
[2023-05-03] MEDS: ALBUMIN HUMAN 25% 12.5 GM/50ML 50 ML IVPB (16:50)
[2023-05-03] MEDS: NOREPINEPHRINE 8 MG/D5W 250 ML 8 MG/250 ML BAG 9.38 MG IV CONT (17:05)
[2023-05-03 18:55] LABS: Glucose Point of Care 91 mg/dl (65-105)
--- NOTE | 2023-05-03 19:00 | PC.NURSE ---
Received bedside report from NARAYAN Black. Patient's Precedex drip running at 0.6mcg/kg/hr. Patient' MAR not updated to correct dose. Drip updated to correct rate in MAR.
[2023-05-04] VITALS (24 sets, daily range): BP systolic 111–210; BP diastolic 48–80; PULSE 60–68; RESP 17–22; TEMP 36.6–38.1; O2SAT 92–99
[2023-05-04 00:47] LABS: Glucose Point of Care 99 mg/dl (65-105)
[2023-05-04] MEDS: PROPOFOL IV EMULSION 100 ML 5.76 MG IV CONT (01:38)
[2023-05-04] MEDS: dexmedeTOMIDine 400 MCG/100 ML 400 MCG/100 ML BAG 9.6 MCG IV CONT (02:36)
[2023-05-04 04:52] LABS: Alveolar/Arterial O2 Gradient 222.1 mmHg; Base Excess ABG 4.4 mEq/l (+/-2.0); Fractional Inspired Oxygen 50 %; HCO3 ABG 28.4 mEq/l (22.0-26.0); Methemoglobin ABG 0.2 %THb (0-1.5); Oxygen Content ABG 18.3 %vol (16.0-22.0); Oxygen Saturation ABG 97.2 % (95.0-100.0); Oxyhemoglobin 95.8 % THb (90.0-100.0); PCO2 ABG 40.2 mmHg (35.0-45.0); PO2 ABG 89.2 mmHg (80.0-100.0); PO2 FiO2 Ratio Arterial Blood 1.78 %; Total Hemoglobin 13.5 g/dL (12.0-18.0); pH ABG 7.467 (7.350-7.450)
[2023-05-04 05:40] LABS: Basophils Absolute Auto 0.1 K/mm3 (0.0-0.1); Basophils Percent Auto 0.5 % (0.2-1.2); Eosinophils Absolute Auto 0.3 K/mm3 (0-0.3); Hemoglobin 10.8 g/dL (12.0-15.0); Immature Granulocyte Absolute 0.05 K/mm3 (0.00-0.031); Immature Granulocyte Percent A 0.5 % (0-0.5); Lymphocytes Absolute Auto 0.78 K/mm3 (0.9-3.2); Lymphocytes Percent Auto 7.5 % (18.3-44.2); Mean Corpuscular HGB Conc 30.9 g/dl (32-36); Mean Corpuscular Hemoglobin 31.4 pg (26-34); Mean Corpuscular Volume 101.7 fl (80-100); Mean Platelet Volume 10.7 fl (7.4-10.4); Monocytes Absolute Auto 0.7 K/mm3 (0.1-0.6); Monocytes Percent Auto 6.6 % (2.6-8.5); Neutrophils Absolute Auto 8.5 K/mm3 (1.3-6.7); Neutrophils Percent Auto 81.9 % (45.5-73.1); Platelet Count Result 223 k/mm3 (150-375); Red Blood Count 3.44 M/mm3 (4.2-5.4); Red Cell Distribution Width 17.1 % (11.5-14.5); White Blood Count 10.4 K/mm3 (4.5-10.0)
[2023-05-04] MEDS: CENTRAL LINE FLUSH 10 ML IV PUSH ×2 (05:43→20:41)
[2023-05-04 06:04] LABS: Alanine Aminotransferase 12 U/L (6-35); Albumin Level 3.8 g/dL (3.5-5.1); Alkaline Phosphatase 118 U/L (38-126); Anion Gap 12 mmol/L (8-16); Aspartate Amino Transferase 25 U/L (14-36); Blood Urea Nitrogen 64 mg/dL (7-17); Calcium 9.4 mg/dL (8.4-10.2); Carbon Dioxide 28 mmol/L (22-30); Chloride 98 mmol/L (98-107); Estimated CRCL calculation 6 ml/min; Estimated Glomerular Filt Rate 6; Glucose 117 mg/dL (65-110); Magnesium 2.5 mg/dL (1.6-2.3); Phosphorus 7.7 mg/dL (2.5-4.5); Potassium 4.2 mmol/L (3.4-5.0); Sodium 138 mmol/L (137-145)
[2023-05-04 06:13] LABS: Arterial Blood Gas PEEP 8 cmH2O; Arterial Blood Gas Tidal Volume 360 ml; Arterial Blood Gas Vent Mode CMV; Arterial Blood Gas Ventilator rate 18 /MIN; Device VENTILATOR; Modified Allen's Test Pass; Site Drawn LEFT RADIAL
--- NOTE | 2023-05-04 08:47 | PM.IMPN ---
Progress Note: A&P Assessment and Plan (1) Acute respiratory failure: Code(s): J96.00 - Acute respiratory failure, unspecified whether with hypoxia or hypercapnia Status: Acute Assessment and Plan: Patient was at dialysis and developed shortness of breath. Patient started on BiPAP in ED but had increasing work of breathing and agitation. Patient was emergently intubated on 05/02 and admitted to the ICU. CXR showed cardiomegaly with pulmonary edema and bilateral pleural effusions. RSV, COVID and influenza PCR negative. Suspect volume overload related to incomplete dialysis treatment. PNA felt less likely. Could be related to malignant HTN. BP better. Has had HD 05/02 and again 05/03. Has temperature instability with temp as low as 95.8 to high of 100.5 WBC as high as 12K but now trending downward. Continue to hold antibiotics at this time. Wean vent as tolerated Appreciate refrigerated cargo clerk input. Discussed with refrigerated cargo clerk (2) Pulmonary edema: Code(s): J81.1 - Chronic pulmonary edema Status: Acute Assessment and Plan: CXR showed cardiomegaly with pulmonary edema and bilateral pleural effusions. BNP>30K. Volume overload from incomplete HD with new/acute on chronic HF - no prior treatment at this facility and limited hx provided. Echo showing EF 40-45% with abnormal diastolic function and mild valvular disease. Hemodialysis to control fluid status. (3) End stage renal disease on dialysis: Code(s): N18.6 - End stage renal disease; Z99.2 - Dependence on renal dialysis Status: Acute Assessment and Plan: Nephrology consulted. Receives HD on //. HD treatment in evening on 05/02 and again 05/03. HD per tax auditor. Appreciate nephrology input (4) Hypertensive emergency: Code(s): I16.1 - Hypertensive emergency Status: Acute Assessment and Plan: Hypertensive on arrival. SBP as high as 271 but mostly 200-240 BP improved and actually dropped to 66/53 at 1 point Benicar and hydralazine on hold. She remains on Coreg. Blood pressure well controlled at this time. Continue to monitor. (5) Elevated troponin: Code(s): R79.89 - Other specified abnormal findings of blood chemistry Status: Acute Assessment and Plan: Troponin elevated but flat. EKG did not show any acute ST elevations or acute ischemic pattern. [place] elevated troponin related to fluid overload and severe HTN ASA daily. (6) Breast mass: Code(s): N63.0 - Unspecified lump in unspecified breast Status: Acute Assessment and Plan: Possible left breast mass. Feels similar to right side. No appreciable adenopathy. Defer workup at this time (7) Anemia: Code(s): D64.9 - Anemia, unspecified Status: Chronic Assessment and Plan: Hgb only mildly low but has macrocytosis. B12 and folate levels are normal. Hemoglobin noted. Continue to follow Plan Diet: Tube feedings GI Prophylaxis: Pantoprazole IVP DVT Prophylaxis: Lovenox Lines: pIV, right IJ central line Code Status: Full Code Subjective Date/time seen: 05/04/23 08:47 Interval history: 67yo female with ESRD, CAD and transmetatarsal amputation here for shortness of breath. Patient intubated and sedated. She does respond to voice and follows commands Review of Systems Review of Systems: ROS unobtainable: Yes unobtainable due to endotracheal tube Exam Narrative: Tm 100.5 99.3 137/66 60 18 97% MV Gen -thin female who is intubated and sedated HEENT -ET tube and OG tube secured. TF running Neck -right IJ TLC secured. Chest -mildly coarse breath sounds anteriorly. CV - RRR S1/S2. Telemetry showing normal sinus rhythm with occasional paced rhythm Abd -soft. +BS. No apparent tenderness. -[place] secured with scant amount of yellow urine bag. Ext - No pedal edema. Status post bilateral transmetatarsal amputation. Thrill and bruit left upper extremity f
[2023-05-04] MEDS: carvediloL 12.5 MG TABLET FEED TUBE ×2 (08:57→20:41)
[2023-05-04] MEDS: SEVELAMER CARBONATE 800 MG TABLET FEED TUBE ×2 (08:57→15:57)
[2023-05-04] MEDS: ASPIRIN 325 MG TABLET FEED TUBE (08:57)
[2023-05-04] MEDS: ENOXAPARIN 30 MG/0.3 ML SYRINGE SUB-Q (08:57)
[2023-05-04] MEDS: RANOLAZINE 500 MG TAB.ER.12H PO ×2 (08:58→20:41)
[2023-05-04] MEDS: PANTOPRAZOLE SODIUM IV 40 MG VIAL IV PUSH (08:58)
[2023-05-04] MEDS: MINERAL OIL/WHITE PETROLATUM OINTMENT 1 APPLIC EACH EYE (08:58)
[2023-05-04 10:24] LABS: Alveolar/Arterial O2 Gradient 132.6 mmHg; Base Excess ABG 2.2 mEq/l (+/-2.0); Carboxyhemoglobin 0.3 % THb (0-2.0); Fractional Inspired Oxygen 40 %; HCO3 ABG 26.9 mEq/l (22.0-26.0); Methemoglobin ABG 0.2 %THb (0-1.5); Oxygen Content ABG 16.1 %vol (16.0-22.0); Oxygen Saturation ABG 97.8 % (95.0-100.0); Oxyhemoglobin 96.3 % THb (90.0-100.0); PCO2 ABG 42.3 mmHg (35.0-45.0); Reduced Hemoglobin 3.2 %THb (0-5.0); Total Hemoglobin 11.8 g/dL (12.0-18.0); pH ABG 7.421 (7.350-7.450)
[2023-05-04 10:25] LABS: Site Drawn RIGHT BRACHIAL
[2023-05-04 10:26] LABS: Device VENTILATOR
[2023-05-04 10:28] LABS: Arterial Blood Gas PEEP 8 cmH2O; Arterial Blood Gas Pressure Support 5 cmH2O; Arterial Blood Gas Vent Mode SPONTANEOUS
--- NOTE | 2023-05-04 10:34 | WPDINTPN ---
Progress Note: A&P Assessment and Plan (1) Acute respiratory failure: Code(s): J96.00 - Acute respiratory failure, unspecified whether with hypoxia or hypercapnia Status: Acute Assessment and Plan: Acute Respiratory failure secondary to pulmonary edema and volume overload Patient was not tolerating NIPPv and had to be emergently intubated in the ER Patient was afebrile, WBC normal and chest x-ray showed bilateral pleural effusions and pulmonary edema. Patient was not started on any antibiotics at that time Chest X shows improvement although still pulmonary edema is not completely resolved. Patient is down to 40% and 8 of PEEP 5/85 PSV SBT done for more than 30 minutes. RSBI, ABGI and Vitals acceptable. Pt awake and following commands. Will extubate and monitor. NPO for now. May need bipap PRN Bronchodilators (2) Pulmonary edema: Code(s): J81.1 - Chronic pulmonary edema Status: Acute Assessment and Plan: Patient's chest x-ray shows pulmonary edema and pleural effusion Likely combination of end-stage renal disease with incomplete dialysis and and congestive heart failure -see echo below 05/02 patient was dialyzed and 2.5 L fluid was removed 05/03 repeat HD session with 2.7 L UF Chest x-ray shows improvement although still not completely resolve (3) End stage renal disease on dialysis: Code(s): N18.6 - End stage renal disease; Z99.2 - Dependence on renal dialysis Status: Acute Assessment and Plan: Nephrology consulted and patient was dialyzed again yesterday. Further dialysis per Nephrology (4) Hypertensive emergency: Code(s): I16.1 - Hypertensive emergency Status: Acute Assessment and Plan: Patient blood pressure above 200 on presentation. She was in respiratory distress Now patient is intubated and sedated and her blood pressure has come down Patient blood pressure conservatively treated. Her blood pressure has been labile with dropped during dialysis and elevation off dialysis Lump since patient will be extubated I will resume her blood pressure medications (5) Elevated troponin: Code(s): R79.89 - Other specified abnormal findings of blood chemistry Status: Acute Assessment and Plan: Patient has mildly elevated troponin which is likely demand mediated ischemia EKG does not show any ST elevation Patient does have history of coronary disease although details are unknown at this time Serial troponin remained flat Continue aspirin aspirin beta-carmen Echo * Normal LV size, severe LV thickening, mild to moderate LV systolic dysfunction, ejection fraction 40-45%; diastolic dysfunction present with elevated left heart pressures.? Linear artifact is seen in the RA/RV.? Normal RV size and systolic function.? Moderate mitral annular calcification.? Trace MR.? Mild aortic valve calcification, mild aortic stenosis, calculated HARRY 1.8 cm2.? Mild tricuspid regurgitation.? RVSP 36 mmHg. Plan DVT prophylaxis -SCDs, lovenox Stress ulcer prophylaxis -PPI Nutrition -currently on tube feeds Code Status - Full Code Total Critical Care Time -30 minutes Due to a high probability of clinically significant, life threatening deterioration, the patient required my highest level of preparedness to intervene emergently and I personally spent this critical care time directly and personally managing the patient. This critical care time included obtaining a history; examining the patient; pulse oximetry; ordering and review of studies; arranging urgent treatment with development of a management plan; evaluation of patient's response to treatment; frequent reassessment; and discussions with other providers. It was exclusive of separately billable procedures and treating other patients and teaching time. Please see Assessment and Plan section and the rest of the note for further information on patient assessment and treatment Subjective Date/time seen: 05/04/23 Overnight
[2023-05-04 12:45] LABS: Glucose Point of Care 99 mg/dl (65-105)
--- NOTE | 2023-05-04 13:13 | P.PNNP_ITS ---
Progress Note: A&P Assessment and Plan (1) End stage renal disease: Code(s): N18.6 - End stage renal disease Status: Chronic Assessment and Plan: * outpatient schedule is Fri/Fri/Fridays * she had DUF yesterday and did well bp did drop once but albumin helped and more fluid was taken off * Electrolytes look okay. * volume status much better * extubated. * follows with Dr. Enzo Shelton at [facility] (2) Acute respiratory failure: Code(s): J96.00 - Acute respiratory failure, unspecified whether with hypoxia or hypercapnia Status: Acute Assessment and Plan: * improved * off the vent now (3) Pulmonary edema: Code(s): J81.1 - Chronic pulmonary edema Status: Acute Assessment and Plan: * possibly due to the hypertensive urgency * Echo shows mildly reduced LV systolic function and some diastolic dysfunction with high LVEDP. * remove fluid as tolerated (4) Hypertensive emergency: Code(s): I16.1 - Hypertensive emergency Status: Acute Assessment and Plan: * blood pressure better. (5) Elevated troponin: Code(s): R79.89 - Other specified abnormal findings of blood chemistry Status: Acute Assessment and Plan: * noted on admission * Troponins barely high and stable. (6) Anemia: Code(s): D64.9 - Anemia, unspecified Status: Chronic Assessment and Plan: * due to ESRD * H/H high enough that she does not need SEBASTIAN. * hb 10.8 Subjective Date/time seen: 05/04/23 13:13 Interval history: alert extubated. we discussed what is going on. Exam Narrative: WDWN female on the ventilator and sedated. skin no rash head ncat lungs coarse bilaterally cor reg no rub or gallop abd BS+ nontender and soft ext no edema or cyanosis. Objective Data Vital Signs Vital Signs: Vital Signs - 24 hr 05/03/23 14:00 05/03/23 13:52 05/03/23 15:14 Temperature 96.6 F L Pulse Rate 60 60 60 Respiratory Rate 18 Blood Pressure 161/73 H 162/78 H Pulse Oximetry 95 95 Oxygen Delivery Mechanical Ventilation Fraction of Inspired Oxygen 50 05/03/23 15:05 05/03/23 15:05 05/03/23 15:30 Temperature 96.8 F L Pulse Rate 60 60 Respiratory Rate 18 Blood Pressure 148/78 H 155/84 H Pulse Oximetry 96 Oxygen Delivery Fraction of Inspired Oxygen 50 05/03/23 15:45 05/03/23 16:00 05/03/23 16:15 Temperature Pulse Rate 60 60 60 Respiratory Rate Blood Pressure 146/66 H 109/66 104/64 Pulse Oximetry Oxygen Delivery Fraction of Inspired Oxygen 05/03/23 16:30 05/03/23 16:45 05/03/23 17:00 Temperature Pulse Rate 60 60 60 Respiratory Rate Blood Pressure 94/50 L 65/44 L 91/63 L Pulse Oximetry Oxygen Delivery Fraction of Inspired Oxygen 05/03/23 16:10 05/03/23 17:15 05/03/23 17:30 Temperature Pulse Rate 60 61 60 Respiratory Rate Blood Pressure 130/82 130/93 H Pulse Oximetry 95 Oxygen Delivery Mechanical Ventilation
--- NOTE | 2023-05-04 13:13 | PM.PNNEP ---
Progress Note: A&P Assessment and Plan (1) End stage renal disease: Code(s): N18.6 - End stage renal disease Status: Chronic Assessment and Plan: outpatient schedule is Fri/Fri/Fridays she had DUF yesterday and did well bp did drop once but albumin helped and more fluid was taken off Electrolytes look okay. volume status much better extubated. follows with Dr. Enzo Shelton at [facility] (2) Acute respiratory failure: Code(s): J96.00 - Acute respiratory failure, unspecified whether with hypoxia or hypercapnia Status: Acute Assessment and Plan: improved off the vent now (3) Pulmonary edema: Code(s): J81.1 - Chronic pulmonary edema Status: Acute Assessment and Plan: possibly due to the hypertensive urgency Echo shows mildly reduced LV systolic function and some diastolic dysfunction with high LVEDP. remove fluid as tolerated (4) Hypertensive emergency: Code(s): I16.1 - Hypertensive emergency Status: Acute Assessment and Plan: blood pressure better. (5) Elevated troponin: Code(s): R79.89 - Other specified abnormal findings of blood chemistry Status: Acute Assessment and Plan: noted on admission Troponins barely high and stable. (6) Anemia: Code(s): D64.9 - Anemia, unspecified Status: Chronic Assessment and Plan: due to ESRD H/H high enough that she does not need SEBASTIAN. hb 10.8 Subjective Date/time seen: 05/04/23 13:13 Interval history: alert extubated. we discussed what is going on. Exam Narrative: WDWN female on the ventilator and sedated. skin no rash head ncat lungs coarse bilaterally cor reg no rub or gallop abd BS+ nontender and soft ext no edema or cyanosis. Objective Data Vital Signs Vital Signs: Vital Signs - 24 hr 05/03/23 14:00 05/03/23 13:52 05/03/23 15:14 Temperature 96.6 F L Pulse Rate 60 60 60 Respiratory Rate 18 Blood Pressure 161/73 H 162/78 H Pulse Oximetry 95 95 Oxygen Delivery Mechanical Ventilation Fraction of Inspired Oxygen 50 05/03/23 15:05 05/03/23 15:05 05/03/23 15:30 Temperature 96.8 F L Pulse Rate 60 60 Respiratory Rate 18 Blood Pressure 148/78 H 155/84 H Pulse Oximetry 96 Oxygen Delivery Fraction of Inspired Oxygen 50 12/09/23 15:45 05/03/23 16:00 05/03/23 16:15 Temperature Pulse Rate 60 60 60 Respiratory Rate Blood Pressure 146/66 H 109/66 104/64 Pulse Oximetry Oxygen Delivery Fraction of Inspired Oxygen 05/03/23 16:30 05/03/23 16:45 05/03/23 17:00 Temperature Pulse Rate 60 60 60 Respiratory Rate Blood Pressure 94/50 L 65/44 L 91/63 L Pulse Oximetry Oxygen Delivery Fraction of Inspired Oxygen 05/03/23 16:10 05/03/23 17:15 05/03/23 17:30 Temperature Pulse Rate 60 61 60 Respiratory Rate Blood Pressure 130/82 130/93 H Pulse Oximetry 95 Oxygen Delivery Mechanical Ventilation Fraction of Inspired Oxygen 50 05/03/23 17:45 05/03/23 18:00 05/03/23 18:10 Temperature 96.0 F L Pulse Rate 61 60 63 Respiratory Rate 18 Blood Pressure 89/70 L 66/54 L 184/99 H Pulse Oximetry 97 Oxygen Delivery Fraction of Inspired Oxygen 05/03/23 18:33 05/03/23 16:00 05/03/23 18:30 Temperature 95.8 F L 96.0 F L Pulse Rate 60 Respiratory Rate 18 Blood Pressure 183/85 H Pulse Oximetry 99 Oxygen Delivery Fraction of Inspired Oxygen 50 05/03/23 18:30 05/03/23 17:05 05/03/23 17:05 Temperature Pulse Rate 60 60 60 Respiratory Rate 18 18 Blood Pressure 91/63 L Pulse Oximetry Oxygen Delivery Fraction of Inspired Oxygen 05/03/23 17:45 05/03/23 18:15 05/03/23 19:00 Temperature Pulse Rate 61 60 60 Respiratory Rate Blood Pressure 89/70 L 184/99 H 160/86 H Pulse Oximetry Oxygen Delivery Fraction of Inspired Oxygen 05/03/23 19:15 05/03/23 18:45 05/03/23
[2023-05-04] MEDS: LABETALOL HCL INJ 100 MG/20 ML VIAL 20 MG IV PUSH (15:14)
[2023-05-04] MEDS: dexmedeTOMIDine 400 MCG/100 ML 400 MCG/100 ML BAG IV CONT (15:20)
[2023-05-04] MEDS: FELODIPINE 5 MG TAB CR 10 MG PO (15:57)
[2023-05-04] MEDS: hydrALAZINE HCL 25 MG TABLET FEED TUBE (15:57)
[2023-05-04 16:45] LABS: Glucose Point of Care 88 mg/dl (65-105)
[2023-05-04] MEDS: MELATONIN 3 MG TABLET PO (20:41)
[2023-05-04] MEDS: ACETAMINOPHEN ELIXIR 325 MG/10.15 ML UDC 650 MG PO (22:27)
[2023-05-05] VITALS (29 sets, daily range): BP systolic 118–212; BP diastolic 56–104; PULSE 62–76; RESP 16–23; TEMP 36.3–37; O2SAT 94–97; BMI 17.1
[2023-05-05] MEDS: hydrALAZINE HCL 25 MG TABLET FEED TUBE ×3 (00:03→12:33)
[2023-05-05 05:06] LABS: Alveolar/Arterial O2 Gradient 85.9 mmHg; Base Excess ABG 2.1 mEq/l (+/-2.0); Carboxyhemoglobin 0.3 % THb (0-2.0); Fractional Inspired Oxygen 32 %; HCO3 ABG 26.3 mEq/l (22.0-26.0); Methemoglobin ABG 0.1 %THb (0-1.5); Oxygen Content ABG 15.1 %vol (16.0-22.0); Oxygen Saturation ABG 97.6 % (95.0-100.0); Oxyhemoglobin 95.8 % THb (90.0-100.0); PCO2 ABG 39.3 mmHg (35.0-45.0); PO2 ABG 96.3 mmHg (80.0-100.0); PO2 FiO2 Ratio Arterial Blood 3.01 %; Reduced Hemoglobin 3.8 %THb (0-5.0); Total Hemoglobin 11.1 g/dL (12.0-18.0); pH ABG 7.443 (7.350-7.450)
[2023-05-05 05:07] LABS: Modified Allen's Test Pass; Site Drawn RIGHT RADIAL
[2023-05-05 05:08] LABS: Device NASAL CANNULA
[2023-05-05] MEDS: CENTRAL LINE FLUSH 10 ML IV PUSH (05:08)
[2023-05-05 05:36] LABS: Basophils Percent Auto 0.2 % (0.2-1.2); Eosinophils Absolute Auto 1.1 K/mm3 (0-0.3); Eosinophils Percent Auto 10.1 % (0-4.4); Hematocrit 31.7 % (37.0-47.0); Hemoglobin 9.9 g/dL (12.0-15.0); Immature Granulocyte Absolute 0.03 K/mm3 (0.00-0.031); Immature Granulocyte Percent A 0.3 % (0-0.5); Lymphocytes Absolute Auto 1.01 K/mm3 (0.9-3.2); Lymphocytes Percent Auto 9.1 % (18.3-44.2); Mean Corpuscular HGB Conc 31.2 g/dl (32-36); Mean Corpuscular Hemoglobin 31.3 pg (26-34); Mean Corpuscular Volume 100.3 fl (80-100); Mean Platelet Volume 11.1 fl (7.4-10.4); Monocytes Absolute Auto 0.7 K/mm3 (0.1-0.6); Monocytes Percent Auto 6.7 % (2.6-8.5); Neutrophils Absolute Auto 8.2 K/mm3 (1.3-6.7); Neutrophils Percent Auto 73.6 % (45.5-73.1); Platelet Count Result 211 k/mm3 (150-375); Red Blood Count 3.16 M/mm3 (4.2-5.4); White Blood Count 11.1 K/mm3 (4.5-10.0)
[2023-05-05 05:59] LABS: Alanine Aminotransferase 12 U/L (6-35); Albumin Level 3.6 g/dL (3.5-5.1); Alkaline Phosphatase 131 U/L (38-126); Anion Gap 14 mmol/L (8-16); Aspartate Amino Transferase 42 U/L (14-36); Bilirubin,Total 0.9 mg/dL (0.2-1.3); Blood Urea Nitrogen 75 mg/dL (7-17); Calcium 9.1 mg/dL (8.4-10.2); Carbon Dioxide 26 mmol/L (22-30); Chloride 97 mmol/L (98-107); Estimated CRCL calculation 6 ml/min; Estimated Glomerular Filt Rate 6; Glucose 93 mg/dL (65-110); Magnesium 2.4 mg/dL (1.6-2.3); Phosphorus 6.7 mg/dL (2.5-4.5); Potassium 3.8 mmol/L (3.4-5.0); Sodium 137 mmol/L (137-145); Triglycerides 112 mg/dL (<150)
[2023-05-05] MEDS: EPOETIN ALFA-EPBX 4,000 UNITS/ML VIAL 4000 UNITS IV PUSH (09:33)
--- NOTE | 2023-05-05 10:15 | PM.PNNEP ---
Progress Note: A&P Assessment and Plan (1) End stage renal disease: Code(s): N18.6 - End stage renal disease Status: Chronic Assessment and Plan: HD today continue outpatient dialysis schedule of Fri/Fri/Fridays continue to follow electrolytes, volume status, and clearance follows with Dr. Enzo Shelton at [facility] (2) Acute respiratory failure: Code(s): J96.00 - Acute respiratory failure, unspecified whether with hypoxia or hypercapnia Status: Acute Assessment and Plan: resolving - extubated cotinue fluid removal with HD/DUF as tolerated follow respiratory status (3) Pulmonary edema: Code(s): J81.1 - Chronic pulmonary edema Status: Acute Assessment and Plan: possibly due to the hypertensive urgency however, reports significant weight loss so it maybe that her dry weight needs to be adjusted Echo with mildly reduced LV systolic function and some diastolic dysfunction with high LVEDP. continue to remove fluid as tolerated (4) Hypertensive emergency: Code(s): I16.1 - Hypertensive emergency Status: Acute Assessment and Plan: blood pressure doing better follow trend of hemodynamics (5) Anemia: Code(s): D64.9 - Anemia, unspecified Status: Chronic Assessment and Plan: due to ESRD Epogen with HD follow trend of H/H Would not be opposed to discharge from renal perspective if she is otherwise medically stable. Will continue to follow. Subjective Date/time seen: 05/05/23 10:15 Interval history: Follow-up for end stage renal disease on hemodialysis. Chart reviewed since last seen -- extubated successfully yesterday with relative stability in respiratory status; tolerating dialysis treatment at the time of my visit (seen on HD at 10:10AM); no apparent distress noted; asking me about discharge today. Exam Narrative: General: thin and elderly female in NAD Heart: normal S1 and S2; no rub Lungs: coarse breath sounds with some bibasilar crackles Abdomen: soft, nontender, nondistended, positive bowel sounds Extremities: no cyanosis or clubbing; bilateral TMAs Skin: warm and dry Objective Data Vital Signs Vital Signs: Vital Signs Temp Pulse Resp BP Pulse Ox O2 Del Method O2 Flow Rate 05/05/23 10:00 65 23 H 210/63 H 05/05/23 10:00 67 05/05/23 08:00 97.6 F 63 21 H 196/91 H 97 05/05/23 08:00 63 21 H 97 Nasal Cannula 4 05/05/23 08:00 68 05/05/23 09:00 66 204/75 H 05/05/23 11:30 64 161/80 H 05/05/23 11:15 62 158/68 H 05/05/23 11:00 64 158/103 H 05/05/23 10:45 63 192/66 H 05/05/23 10:40 65 210/62 H 05/05/23 10:30 67 210/62 H 05/05/23 10:15 68 210/63 H 05/05/23 10:00 65 210/78 H 05/05/23 09:45 68 212/82 H 05/05/23 09:30 68 205/82 H 05/05/23 09:15 66 182/77 H 05/05/23 08:45 64 178/72 H 05/05/23 08:30 63 185/67 H 05/05/23 08:15 63 203/81 H 05/05/23 08:10 62 190/75 H 05/05/23 07:55 3 05/05/23 07:52 97.6 F 63 20 199/78 H 05/05/23 06:00 97.7 F 71 18 165/77 H 96 05/05/23 06:00 71 05/05/23 04:00 66 05/05/23 04:00 97.4 F L 66 16 133/73 96 05/05/23 03:29 69 19 96 Nasal Cannula 4 05/05/23 02:00 97.7 F 69 19 118/70 94 05/05/23 02:00 68 05/05/23 00:00 70 05/05/23 00:00 97.7 F 76 17 144/56 H 96 05/04/23 23:07 63 97 Nasal Cannula 4 05/04/23 22:00 98.0 F 60 18 133/48 L 96 05/04/23 22:00 60 05/04/23 20:00 61 05/04/23 20:41 67 05/04/23 20:00 98.1 F 63 18 154/48 H 97 05/04/23 20:00 64 19 96 Mechanical Ventilation 4 05/04/23 18:00 98.2 F 60 22 H 164/51 H 92 05/04/23 16:00 98.3 F 66 21 H 210/73 H 97 05/04/23 14:00 97.9 F 68 20 177/80 H 94 05/04/23 18:00
--- NOTE | 2023-05-05 10:30 | WPDINTPN ---
Progress Note: A&P Assessment and Plan (1) Acute respiratory failure: Code(s): J96.00 - Acute respiratory failure, unspecified whether with hypoxia or hypercapnia Status: Acute Assessment and Plan: Acute Respiratory failure secondary to pulmonary edema and volume overload 05/05 extubated after a successful weaning trial Now on nasal cannula doing well Add incentive spirometry Continue bronchodilators (2) Pulmonary edema: Code(s): J81.1 - Chronic pulmonary edema Status: Acute Assessment and Plan: Patient's chest x-ray shows pulmonary edema and pleural effusion Likely combination of end-stage renal disease with incomplete dialysis and and congestive heart failure -see echo below 05/02 patient was dialyzed and 2.5 L fluid was removed 05/03 repeat HD session with 2.7 L UF 05/05 patient is getting dialysis again today with plan to remove 2.4 L of fluid Chest x-ray shows improvement. Patient is on nasal cannula (3) End stage renal disease on dialysis: Code(s): N18.6 - End stage renal disease; Z99.2 - Dependence on renal dialysis Status: Acute Assessment and Plan: Nephrology consulted and patient was dialyzed again yesterday. Further dialysis per Nephrology (4) Hypertensive emergency: Code(s): I16.1 - Hypertensive emergency Status: Acute Assessment and Plan: Patient blood pressure above 200 on presentation. She was in respiratory distress Blood pressure improved after intubation and sedation. Patient is now extubated I have resumed her blood pressure medications. Medications kidney further titrated up as per her response Her blood pressure has been labile with drop during dialysis and elevation off dialysis (5) Elevated troponin: Code(s): R79.89 - Other specified abnormal findings of blood chemistry Status: Acute Assessment and Plan: Patient has mildly elevated troponin which is likely demand mediated ischemia EKG does not show any ST elevation Patient does have history of coronary disease although details are unknown at this time Serial troponin remained flat Continue aspirin aspirin beta-carmen Echo * Normal LV size, severe LV thickening, mild to moderate LV systolic dysfunction, ejection fraction 40-45%; diastolic dysfunction present with elevated left heart pressures.? Linear artifact is seen in the RA/RV.? Normal RV size and systolic function.? Moderate mitral annular calcification.? Trace MR.? Mild aortic valve calcification, mild aortic stenosis, calculated HARRY 1.8 cm2.? Mild tricuspid regurgitation.? RVSP 36 mmHg. Plan DVT prophylaxis -SCDs, lovenox Stress ulcer prophylaxis -PPI Nutrition -diet ordered Code Status - Full Code Transfer out of ICU today. Patient states she would like to be discharged. I explained her that we can transfer out of ICU today after dialysis but we have to monitor and make sure her blood pressure is stable on her p.o. meds before discharge. Patient stated that she wants to go home and may leave against medical advice. Subjective Date/time seen: 05/05/23 Patient states she has feeling much better and breathing is improved and she would like to go home. She is getting dialyzed this morning. Her blood pressure has overall improved although still early. She denies any other complaint. She does state that she has trouble swallowing folds pills at home and pressures them. All other systems were reviewed and were negative Interval history: 67yo female with ESRD, CAD and transmetatarsal amputation here acute respiratory failure Review of Systems Review of Systems: All systems reviewed & are unremarkable except as noted in HPI and below (HPI) Exam Narrative: General: Pt is alert awake and in no distress Lungs/Chest: Trachea central Coarse BS B/L, bibasilar crackles, coarse breathing, breath sounds are decreased at both bases. No tachypnea or respiratory distress Cardiac: Regular rate and rhyt
[2023-05-05] MEDS: ASPIRIN 325 MG TABLET FEED TUBE (12:04)
[2023-05-05] MEDS: ENOXAPARIN 30 MG/0.3 ML SYRINGE SUB-Q (12:04)
[2023-05-05] MEDS: SEVELAMER CARBONATE 800 MG TABLET FEED TUBE (12:04)
[2023-05-05] MEDS: carvediloL 12.5 MG TABLET FEED TUBE (12:04)
[2023-05-05] MEDS: RANOLAZINE 500 MG TAB.ER.12H PO (12:05)
[2023-05-05] MEDS: OLMESARTAN MEDOXOMIL 10 MG TABLET FEED TUBE (12:05)
[2023-05-05] MEDS: PANTOPRAZOLE SODIUM IV 40 MG VIAL IV PUSH (12:05)
--- NOTE | 2023-05-05 13:54 | PC.NURSE ---
Patient wants to leave AMA. Dr. Pierre and Dr. Stone notified. Explained to patient why she should stay for at least one more day. Dr. Pierre talked to patient and reiterated reason for continued hospital stay. at bedside. Patient not willing to stay.
--- NOTE | 2023-05-05 15:41 | PM.DS ---
DS: Admitting Diagnosis Discharge Date 05/05/23 Admitting Diagnosis Shortness of breath DS: Discharge Diagnosis Discharge Diagnosis (1) Acute respiratory failure: Code(s): J96.00 - Acute respiratory failure, unspecified whether with hypoxia or hypercapnia Status: Acute (2) Pulmonary edema: Code(s): J81.1 - Chronic pulmonary edema Status: Acute (3) End stage renal disease on dialysis: Code(s): N18.6 - End stage renal disease; Z99.2 - Dependence on renal dialysis Status: Acute (4) Hypertensive emergency: Code(s): I16.1 - Hypertensive emergency Status: Acute (5) Elevated troponin: Code(s): R79.89 - Other specified abnormal findings of blood chemistry Status: Acute (6) Breast mass: Code(s): N63.0 - Unspecified lump in unspecified breast Status: Acute (7) Anemia: Code(s): D64.9 - Anemia, unspecified Status: Chronic DS: Summary Hospital Course Reason for hospitalization: 67yo female with ESRD, CAD and transmetatarsal amputation here for shortness of breath. Please see H&P for details. Hospital Course: Patient was at dialysis and developed shortness of breath.? Patient started on BiPAP in ED but had increasing work of breathing and agitation.? Patient was emergently intubated on 05/02 and admitted to the ICU. CXR showed cardiomegaly with pulmonary edema and bilateral pleural effusions.?RSV, COVID and influenza PCR negative. Suspected volume overload related to incomplete dialysis treatment. PNA felt less likely. Could be related to malignant HTN. BP improved. She underwent HD multiple times here. She had temperature instability with temp as low as 95.8 to high of 100.5. WBC as high as 12K but trending downward. Echo showing EF 40-45% with abnormal diastolic function and mild valvular disease. [place] she had acute/chronic systolic and diastolic CHF. We used hemodialysis to control fluid status. Nephrology consulted for dialysis orders. Patient was hypertensive on arrival. SBP as high as 271 but mostly 200-240. BP improved and actually dropped low. Medciations held and then resumed when her blood pressure improved. Troponin elevated but flat. EKG did not show any acute ST elevations or acute ischemic pattern. [place] elevated troponin related to fluid overload and severe HTN. Possible left breast mass noted on exam. No appreciable adenopathy. Patient did well with dialysis with improved fluid balance. Patient was able to be extubated 05/04 to nasal cannula. She had dialysis on the morning on 05/05 and then decided to sign herself out against medical advise. Did not see or exam patient before she left but the coke handling supervisor did speak with her and explained the risks of signing out. Time Spent with Patient Time attestation: Total time spent providing and/or coordinating discharge services: 35 minutes Exam Narrative: AF 97.9 191/86 64 22 97% 4L not seen on day of departure DS: Data Data Completed and Pending Labs on day of discharge: Labs from last 24 hours 05/05/23 05/05/23 05/04/23 05:14 04:59 16:41 WBC 11.1 H RBC 3.16 L Hgb 9.9 L Hct 31.7 L MCV 100.3 H MCH 31.3 MCHC 31.2 L RDW 17.0 H Plt Count 211 MPV 11.1 H Immature Gran % (Auto) 0.3 Neut % (Auto) 73.6 H Lymph % (Auto) 9.1 L [place] % (Auto) 6.7 Eos % (Auto) 10.1 H Baso % (Auto) 0.2 Lymph # (Auto) 1.01 [place] # (Auto) 0.7 H Eos # (Auto) 1.1 H Baso # (Auto) 0.0 Abs Immat Gran (auto) 0.03 Absolute Neuts (auto) 8.2 H Absolute Nucleated RBC 0.0 Nucleated RBC % 0.0 Puncture Site Right radial ABG pH 7.443 ABG pCO2 39.3 ABG pO2 96.3 ABG PO2/FiO2 Ratio 3.01 ABG HCO3 26.3 H ABG O2 Saturation 97.6 ABG O2 Content 15.1 L ABG Base Excess 2.1 A-a Gradient 85.9 Oxyhemoglobin 95.8 Carboxyhemoglobin 0.3 Methemoglobin 0.1 Reduced Hemoglobin 3.8 Total Hemoglobin 11
== END 2023-05-05 14:00 | disposition left against medical advice (07) | DRG 291 ==
LOC: ANHED 12:40 → ANHICU 15:08 → ANHIMU 15:08
PROVIDERS: Internal Medicine; Internal Medicine Nephrology; Admitting Provider Internal Medicine; Emergency Provider Emergency Medicine; Visit Provider Internal Medicine
DX: I13.2 Hypertensive heart and chronic kidney disease with heart failure and with stage 5 chronic kidney disease, or end stage renal disease (principal); I50.43 Acute on chronic combined systolic (congestive) and diastolic (congestive) heart failure; J96.00 Acute respiratory failure, unspecified whether with hypoxia or hypercapnia; N18.6 End stage renal disease; I16.1 Hypertensive emergency; D63.1 Anemia in chronic kidney disease; I25.10 Atherosclerotic heart disease of native coronary artery without angina pectoris; R79.89 Other specified abnormal findings of blood chemistry; N63.20 Unspecified lump in the left breast, unspecified quadrant; Z20.822 Contact with and (suspected) exposure to COVID-19; Z99.2 Dependence on renal dialysis; Z89.432 Acquired absence of left foot; Z89.431 Acquired absence of right foot
CPT/HCPCS: 31500; 36415; 36600; 71045; 80053; 82375; 82607; 82746; 82805; 82948; 83036; 83050; 83735; 83880; 84100; 84145; 84478; 84484; 85025; 85027; 85384; 85610; 85730; 86706; 87340; 87637; 93005; 93306; 94002; 94003; 94640; 96365; 96375; 99291; A9270; C1751; C9113; G0257; G0378; J0330; J0360; J1650; J2060; J2704; J7030; P9047; Q5105

== ENCOUNTER 2023-05-11 16:36 | Emergency (ER) | payer MEDICARE, MEDICAID, SELFPAY ==
[2023-05-11] VITALS (10 sets, daily range): BP systolic 222–248; BP diastolic 110–139; PULSE 99–105; RESP 21–29; TEMP 36.7; O2SAT 98–100
--- NOTE | ~2023-05-11 | XR_ITS ---
EXAMINATION: XR chest 2V Exam Date/Time: 05/11/2023 16:55 LOADING MACHINE OPERATOR HISTORY: chest pain, SOB SUBSTERNAL CHEST PAIN WITH DYSPNEA Comparison: 05/05/2023. RESULT: Lines, tubes, and devices: Stent over the right lower neck. Left chest pacer with intact leads. Lungs and pleura: Stable moderate diffuse reticular opacities, bibasilar airspace disease, and moder ate bilateral costophrenic angle blunting. Cardiomediastinal silhouette: Stable. Other: No acute osseous or upper abdominal finding. IMPRESSION: Unchanged pulmonary opacities likely representing moderate interstitial edema with moderate bilateral pleural effusions. Infection is not excluded. Reviewed, dictated and finalized at location K. ING MACHINE OPERATOR IMPRESSION: Unchanged pulmonary opacities likely representing moderate interstitial edema w ith moderate bilateral pleural effusions. Infection is not excluded.
--- NOTE | 2023-05-11 16:57 | PC.NURSE ---
STEMI called in via EMS radio to charge nurse at 1622, paged [facility] ER Rm 7 at 1623, [place] to finishing lab technician sent at 1627 and call to Shea MORA placed at 1627. STEMI canceled per MD Chatterjee at 1653.
--- NOTE | 2023-05-11 17:01 | ED.CHESTPAIN ---
HPI - Chest Pain General Chief Complaint: Chest Pain Stated Complaint: STEMI Time Seen by Provider: 05/11/23 16:55 History of Present Illness HPI narrative: Patient is a 67-year-old female with a history of ESRD on dialysis, COPD on baseline oxygen, CAD, hypertension presenting with shortness of breath. Patient states that it started earlier today. She has been using her inhalers with minimal relief. States that she is also having some left-sided chest pain. States that she has been compliant with her medications until today when she ran out of her blood pressure medicine. No lightheadedness. Reports intermittent cough. No leg swelling. Patient had dialysis on Friday (2 days ago). Related Data Home Medications Medication Instructions Recorded Confirmed albuterol sulfate 90 mcg/actuation 2 puff inhalation Q6H PRN 05/03/23 05/12/23 aerosol inhaler Shortness Of Breath Or Wheezing alprazolam 0.5 mg tablet 0.5 mg PO PRN PRN dialysis 05/03/23 05/12/23 aspirin 81 mg tablet,delayed 81 mg PO DAILY 05/03/23 05/12/23 release carvedilol 12.5 mg tablet 12.5 mg PO BID 05/03/23 05/12/23 escitalopram oxalate 10 mg tablet 10 mg PO DAILY 05/03/23 05/12/23 felodipine 10 mg tablet,extended 10 mg PO HS 05/03/23 05/12/23 release 24 hr hydralazine 10 mg tablet 10 mg PO BID 05/03/23 05/12/23 olmesartan 20 mg tablet 10 mg PO DAILY 05/03/23 05/12/23 ranolazine 500 mg tablet,extended 500 mg PO Q12H 05/03/23 05/12/23 release,12 hr sevelamer carbonate 0.8 gram oral 0.8 g PO TID 05/03/23 05/12/23 powder packet tramadol 50 mg tablet 50 mg PO Q6H PRN Pain 05/03/23 05/12/23 Allergies Allergy/AdvReac Type Severity Reaction Status Date / Time clonidine Allergy Unknown Verified 05/03/23 03:26 hydrocodone Allergy Unknown Verified 05/03/23 03:25 minoxidil Allergy Unknown Verified 05/03/23 03:26 amlodipine AdvReac Unknown Verified 05/02/23 12:09 Review of Systems Review of Systems: All systems reviewed & are unremarkable except as noted in HPI and below PMFSH Past Medical History Medical History CAD (coronary atherosclerotic disease) End stage renal disease on dialysis Surgical History Surgical History History of arteriovenostomy for renal dialysis bilateral History of transmetatarsal amputation of left foot History of transmetatarsal amputation of right foot Family History Family History (Updated 05/12/23 @ 04:34 by Jodi Luu RN) Sibling Cerebrovascular accident Other Unknown family medical history Social History Social History Smoking status: Never smoker Alcohol intake: never Substance use: never Substance use type: does not use Do You Feel Safe in your Home?: Yes Lack of Transportation: No Lack of Food: Never True Current Housing: I Have Housing Concerned About Future Housing: No Difficulty Paying Gas/Electric Bills: No Difficulty Paying for Meds: No Currently Unemployed: No Education: High School Diploma/GED Difficulty w/ Childcare or Family Care: No Spiritual care concerns: No Exam Narrative: GENERAL: frail, chronically ill-appearing female, anxious HEAD: Normocephalic, atraumatic. EYES: PERRLA and EOMI. ENT: Mucous membranes dry NECK: Supple. CHEST: coarse breath sounds bilaterally with scattered wheezing HEART: tachycardic, regular rhythm ABDOMEN: Soft, nontender, nondistended EXTREMITIES: No edema. bilateral midfoot amputations. fistulas bilateral upper extremities SKIN: Warm, dry, no rash. NEURO: Alert and oriented x3. PSYCH: Normal mood and affect. Course Vital Signs Vital signs: Vital Signs Temperature 98.0 F 05/11/23 16:49 Pulse Rate 101 H 05/11/23 16:49 Respiratory Rate 26 H 05/11/23 16:49 Blood Pressure 248/117 H 05/11/23 16:49 Pulse O
[2023-05-11] MEDS: NITROGLYCERIN SL 0.4 MG TABLET SUBLINGUAL (17:05)
[2023-05-11 17:18] LABS: Basophils Absolute Auto 0.1 K/mm3 (0.0-0.1); Basophils Percent Auto 0.7 % (0.2-1.2); Eosinophils Absolute Auto 1.3 K/mm3 (0-0.3); Eosinophils Percent Auto 12.6 % (0-4.4); Hematocrit 35.6 % (37.0-47.0); Hemoglobin 10.8 g/dL (12.0-15.0); Immature Granulocyte Absolute 0.03 K/mm3 (0.00-0.031); Immature Granulocyte Percent A 0.3 % (0-0.5); Lymphocytes Absolute Auto 1.72 K/mm3 (0.9-3.2); Lymphocytes Percent Auto 16.4 % (18.3-44.2); Mean Corpuscular HGB Conc 30.3 g/dl (32-36); Mean Corpuscular Hemoglobin 30.7 pg (26-34); Mean Corpuscular Volume 101.1 fl (80-100); Mean Platelet Volume 10.6 fl (7.4-10.4); Monocytes Absolute Auto 0.9 K/mm3 (0.1-0.6); Monocytes Percent Auto 8.3 % (2.6-8.5); Neutrophils Absolute Auto 6.5 K/mm3 (1.3-6.7); Neutrophils Percent Auto 61.7 % (45.5-73.1); Platelet Count Result 322 k/mm3 (150-375); Red Blood Count 3.52 M/mm3 (4.2-5.4); Red Cell Distribution Width 16.6 % (11.5-14.5); White Blood Count 10.5 K/mm3 (4.5-10.0)
[2023-05-11] MEDS: IPRATROPIUM BR 0.02% INH SOLN 0.5 MG/2.5 ML VIAL INHALATION (17:19)
[2023-05-11] MEDS: ALBUTEROL SULFATE NEB 2.5 MG/3 ML INH 10 MG INHALATION (17:19)
[2023-05-11 17:29] LABS: INR 0.9; Prothrombin Time 12.9 Seconds (11.1-14.7)
[2023-05-11 17:30] LABS: Partial Thromboplastin Time 31.6 SECONDS (22.3-36.8)
[2023-05-11 17:32] LABS: Alveolar/Arterial O2 Gradient 214.6 mmHg; Base Excess ABG 4.3 mEq/l (+/-2.0); Fractional Inspired Oxygen 42 %; HCO3 ABG 29.3 mEq/l (22.0-26.0); Oxygen Content ABG 9.1 %vol (16.0-22.0); PCO2 ABG 45.7 mmHg (35.0-45.0); PO2 FiO2 Ratio Arterial Blood 0.77 %; Total Hemoglobin 12.2 g/dL (12.0-18.0); pH ABG 7.425 (7.350-7.450)
[2023-05-11 17:33] LABS: Alanine Aminotransferase 14 U/L (6-35); Albumin Level 4.1 g/dL (3.5-5.1); Alkaline Phosphatase 155 U/L (38-126); Anion Gap 13 mmol/L (8-16); Aspartate Amino Transferase 23 U/L (14-36); Bilirubin,Total 1.1 mg/dL (0.2-1.3); Blood Urea Nitrogen 57 mg/dL (7-17); Carbon Dioxide 25 mmol/L (22-30); Chloride 98 mmol/L (98-107); Estimated CRCL calculation 8 ml/min; Estimated Glomerular Filt Rate 9; Glucose 96 mg/dL (65-110); Lipase 114 U/L (23-300); Potassium 5.6 mmol/L (3.4-5.0); Sodium 136 mmol/L (137-145)
[2023-05-11 17:34] LABS: Magnesium 2.4 mg/dL (1.6-2.3)
[2023-05-11 17:35] LABS: Device NASAL CANNULA; Modified Allen's Test Pass; Oxygen Saturation ABG 63.4 % (95.0-100.0); PO2 ABG 32.5 mmHg (80.0-100.0); Site Drawn LEFT RADIAL
[2023-05-11 17:41] LABS: NT Pro B Type Natriuretic Pept > 30000 pg/mL (19.9-100)
[2023-05-11 17:49] LABS: Lactic Acid Reflex 0.8 mmol/L (0.7-2.0)
[2023-05-11 17:51] LABS: Troponin I 0.113 ng/mL (0.000-0.034)
[2023-05-11 17:54] LABS: Influenza A QL RT-PCR Negative (Negative); Influenza B QL RT-PCR Negative (Negative); RSV RNA, RT-PCR Negative (Negative); SARS-CoV-2 RNA PCR Negative (Negative)
[2023-05-11 18:08] LABS: Appearance Urine Clear (Clear); Bacteria Urine None Seen /hpf; Bilirubin Urine Negative (Negative); Blood Urine Negative (Negative); Color Urine Yellow (Yellow); Glucose Urine UA Trace mg/dL (Negative); Ketones Urine Negative (Negative); Leukocyte Esterase Ur Negative LEU/UL (Negative); Nitrate Urine Negative (Negative); Non Pathogenic Casts 0-2; Protein Urine 3+ mg/dL (Negative); RBC Urine 0-2 /hpf (0-2); Specific Grav Ur 1.013 (1.001-1.035); Squamous Epithelial Cell Urine Few /hpf (Few); Urobilinogen Urine 0.2 mg/dL (<2.0); WBC Urine 0-5 /hpf; pH Urine 8.5 (5.0-9.0)
[2023-05-11 18:13] LABS: Add Urine Microscopic? YES
--- NOTE | 2023-05-11 18:14 | PC.NURSE ---
pt reports she wants to leave AMA. Dr. Daniels and Dr. Chatterjee have explained all risks including and pt voices positive understanding. Pt states If i want to go home and I that's my choice. Pt also states I have a heart doctor and if he thought my heart was that bad he would have told me.
[2023-05-11] MEDS: hydrALAZINE HCL 25 MG TABLET PO (18:36)
[2023-05-11] MEDS: OLMESARTAN MEDOXOMIL 10 MG TABLET PO (18:36)
[2023-05-11] MEDS: carvediloL 12.5 MG TABLET PO (18:36)
== END 2023-05-11 18:35 | disposition left against medical advice (07) ==
PROVIDERS: Emergency Provider Emergency Medicine
DX: J96.00 Acute respiratory failure, unspecified whether with hypoxia or hypercapnia (principal); I12.0 Hypertensive chronic kidney disease with stage 5 chronic kidney disease or end stage renal disease; N18.6 End stage renal disease; R07.9 Chest pain, unspecified; Z20.822 Contact with and (suspected) exposure to COVID-19; I25.10 Atherosclerotic heart disease of native coronary artery without angina pectoris; J44.9 Chronic obstructive pulmonary disease, unspecified; Z99.2 Dependence on renal dialysis; Z99.81 Dependence on supplemental oxygen; Z89.432 Acquired absence of left foot; Z89.431 Acquired absence of right foot; Z79.82 Long term (current) use of aspirin
CPT/HCPCS: 36415; 36600; 71046; 80053; 81001; 82805; 83605; 83690; 83735; 83880; 84484; 85025; 85610; 85730; 87637; 99284; A9270

== ENCOUNTER 2023-05-11 23:50 | Inpatient (IN) | payer MEDICARE, MEDICAID, SELFPAY ==
--- NOTE | ~2023-05-11 | XR_ITS ---
EXAMINATION: XR lumbar spine 2-3V DATE: 05/13/2023 17:47 INDICATION: Back pain. TECHNIQUE: 3 views of lumbar spine were obtained. COMPARISON: None. FINDINGS: Bone alignment is normal. There is mild chronic anterior wedging of T12 vertebral body. Int ervertebral disc heights are normal. There are endplate osteophytes at most levels. There is multilev el facet joint osteoarthritis, severe in lower lumbar spine. There is calcified atherosclerosis of th e aorta and many of the other arteries. There is a fusiform aneurysm of abdominal aorta measuring sruthi roximately 4.3 cm. There are stents in the renal arteries. There are changes of ventral hernia repair . IMPRESSION: 1. Mild lumbar spondylosis. 2. Abdominal aortic aneurysm measuring approximately 4.3 cm. Reviewed, dictated and finalized at location E. PHONE MAINTAINER
--- NOTE | ~2023-05-11 | XR_ITS ---
Portable chest x-ray Comparison: 05/11/2023 Clinical History: Shortness of breath Findings: Moderate bilateral pleural effusions are present, with probable moderate pulmonary edema p attern and/or underlying chronic interstitial disease. Cardiomediastinal silhouette is stable, with pacemaker device. Bones and soft tissues are unremarkable. Impression: Moderate bilateral pleural effusions with bibasilar/perihilar pulmonary edema/atelectasis. Suspected underlying COPD and/or other chronic interstitial disease. Reviewed, dictated and finalized at location . RY AND DELI SALES MANAGER Impression: Moderate bilateral pleural effusions with bibasilar/perihilar pulmonary edema/a telectasis. Suspected underlying COPD and/or other chronic interstitial disease.
--- NOTE | 2023-05-11 17:34 | ECG_ITS ---
Measurements Intervals [place] Rate: 100 P: [place]: 0 QRS: -58 QRSD: 102 T: 90 QT: 348 QTc: 451 Interpretive Statements SINUS TACHYCARDIA MARKED LEFT AXIS DEVIATION [QRS AXIS < -30] POSSIBLE ANTEROSEPTAL MYOCARDIAL INFARCTION , OF INDETERMINATE AGE [30 ms Q WAVE IN V3/V4, OR R < 0.2 mV IN V4] ABNORMAL ECG COMPARED TO ECG 05/11/2023 16:42:06 NO SIGNIFICANT CHANGE Electronically Signed On 05-12-2023 17:07:16 RETAIL REPRESENTATIVE by Warren Pritchett M.D.
[2023-05-11 23:52] VITALS: BP 121/102; PULSE 86; RESP 20; TEMP 36.5; O2SAT 97
[2023-05-12] VITALS (32 sets, daily range): BP systolic 114–228; BP diastolic 22–122; PULSE 71–95; RESP 15–21; TEMP 36.3–37.3; O2SAT 92–100; BMI 19.8
--- NOTE | 2023-05-12 | ECG_ITS ---
Measurements Intervals [place] Rate: 102 P: 99 [place]: 194 QRS: 269 QRSD: 100 T: 80 QT: 335 QTc: 438 Interpretive Statements SINUS TACHYCARDIA MARKED RIGHT AXIS DEVIATION [QRS AXIS > 100] LEFT VENTRICULAR HYPERTROPHY WITH SECONDARY REPOLARIZATION ABNORMALITY CANNOT RULE OUT PREVIOUS SEPTAL AR COMPARED TO ECG 05/02/2023 12:08:18 INCREASED HEART RATE, NO OTHER CHANGE Electronically Signed On 05-12-2023 7:20:16 IT ADMINISTRATIVE ASSISTANT by Emiliano Valdivia M.D.
--- NOTE | 2023-05-12 00:34 | ED.GENADULT ---
HPI - General Adult General Chief complaint: Shortness of Breath/Dyspnea Stated complaint: sob Time Seen by Provider: 05/11/23 23:52 History of Present Illness HPI narrative: patient is a 67-year-old female who presents to emergency department with chief complaint of shortness of breath. Patient has prior history of end-stage renal disease on dialysis and was seen in the emergency department earlier this evening of 0 4 hypertensive crisis the patient at that time had some ST elevations and did have a slightly elevated troponin. The patient signed out AMA at that time and decided to come into the emergency department for further treatment. The patient reports she is on dialysis Friday reports she has not missed any dialysis. Related Data Home Medications Medication Instructions Recorded Confirmed albuterol sulfate 90 mcg/actuation 2 puff inhalation Q6H PRN 05/03/23 05/03/23 aerosol inhaler Shortness Of Breath Or Wheezing alprazolam 0.5 mg tablet 0.5 mg PO PRN PRN dialysis 05/03/23 05/03/23 aspirin 81 mg tablet,delayed 81 mg PO DAILY 05/03/23 05/03/23 release carvedilol 12.5 mg tablet 12.5 mg PO BID 05/03/23 05/03/23 escitalopram oxalate 10 mg tablet 10 mg PO DAILY 05/03/23 05/03/23 felodipine 10 mg tablet,extended 10 mg PO HS 05/03/23 05/03/23 release 24 hr hydralazine 10 mg tablet 10 mg PO BID 05/03/23 05/03/23 olmesartan 20 mg tablet 10 mg PO DAILY 05/03/23 05/03/23 ranolazine 500 mg tablet,extended 500 mg PO Q12H 05/03/23 05/03/23 release,12 hr sevelamer carbonate 0.8 gram oral 0.8 g PO TID 05/03/23 05/03/23 powder packet tramadol 50 mg tablet 50 mg PO Q6H PRN Pain 05/03/23 05/03/23 Allergies Allergy/AdvReac Type Severity Reaction Status Date / Time clonidine Allergy Unknown Verified 05/03/23 03:26 hydrocodone Allergy Unknown Verified 05/03/23 03:25 minoxidil Allergy Unknown Verified 05/03/23 03:26 amlodipine AdvReac Unknown Verified 05/02/23 12:09 Review of Systems Review of Systems: A 10 system review of systems was completed on the patient and is negative except for what is stated in the HPI. Nursing and ancillary documentation was reviewed. PMFSH Past Medical History Medical History CAD (coronary atherosclerotic disease) End stage renal disease on dialysis Surgical History Surgical History History of arteriovenostomy for renal dialysis bilateral History of transmetatarsal amputation of left foot History of transmetatarsal amputation of right foot Family History Family History Other Unknown family medical history Social History Social History Smoking status: Unknown if ever smoked Alcohol intake: unknown Substance use: unknown Substance use type: unknown Spiritual care concerns: No Exam Narrative: GENERAL: Well-appearing, well-nourished, and in no acute distress. HEAD: Normocephalic, atraumatic. EYES: PERRLA and EOMI. ENT: Nares clear, no rhinorrhea or epistaxis. Mucous membranes moist. NECK: Supple. CHEST: Clear to auscultation. No respiratory distress. HEART: Regular rate and rhythm. No murmur heard. Normal peripheral pulses. ABDOMEN: Soft, nontender, nondistended, normal active bowel sounds. EXTREMITIES: Normal range of motion. No edema. SKIN: Warm, dry, no rash. NEURO: No focal deficits. Alert and oriented x3. PSYCH: Normal mood and affect. Course Vital Signs Vital signs: Vital Signs Temperature 36.5 C 05/11/23 23:52 Pulse Rate 86 05/11/23 23:52 Respiratory Rate 20 05/11/23 23:52 Blood Pressure 121/102 H 05/11/23 23:52 Pulse Oximetry 97 05/11/23 23:52 Oxygen Delivery Nasal Cannula 05/11/23 23:52 Oxygen Flow Rate 3 05/11/23 23:52 Temperature 36.5
[2023-05-12 00:42] LABS: Basophils Absolute Auto 0.1 K/mm3 (0.0-0.1); Basophils Percent Auto 0.8 % (0.2-1.2); Eosinophils Absolute Auto 1.1 K/mm3 (0-0.3); Eosinophils Percent Auto 12.8 % (0-4.4); Hematocrit 34.9 % (37.0-47.0); Hemoglobin 10.7 g/dL (12.0-15.0); Immature Granulocyte Absolute 0.02 K/mm3 (0.00-0.031); Immature Granulocyte Percent A 0.2 % (0-0.5); Lymphocytes Absolute Auto 1.25 K/mm3 (0.9-3.2); Lymphocytes Percent Auto 15.1 % (18.3-44.2); Mean Corpuscular HGB Conc 30.7 g/dl (32-36); Mean Corpuscular Hemoglobin 30.7 pg (26-34); Mean Corpuscular Volume 100.3 fl (80-100); Mean Platelet Volume 10.8 fl (7.4-10.4); Monocytes Absolute Auto 0.7 K/mm3 (0.1-0.6); Monocytes Percent Auto 8.6 % (2.6-8.5); Neutrophils Absolute Auto 5.2 K/mm3 (1.3-6.7); Neutrophils Percent Auto 62.5 % (45.5-73.1); Platelet Count Result 309 k/mm3 (150-375); Red Blood Count 3.48 M/mm3 (4.2-5.4); Red Cell Distribution Width 16.8 % (11.5-14.5); White Blood Count 8.3 K/mm3 (4.5-10.0)
[2023-05-12 00:52] LABS: Lactic Acid Reflex 0.9 mmol/L (0.7-2.0)
[2023-05-12 00:53] LABS: Alanine Aminotransferase 12 U/L (6-35); Albumin Level 3.8 g/dL (3.5-5.1); Alkaline Phosphatase 160 U/L (38-126); Anion Gap 12 mmol/L (8-16); Aspartate Amino Transferase 23 U/L (14-36); Bilirubin,Total 1.1 mg/dL (0.2-1.3); Blood Urea Nitrogen 61 mg/dL (7-17); Calcium 9.9 mg/dL (8.4-10.2); Carbon Dioxide 26 mmol/L (22-30); Chloride 97 mmol/L (98-107); Estimated CRCL calculation 7 ml/min; Estimated Glomerular Filt Rate 8; Glucose 91 mg/dL (65-110); Lipase 119 U/L (23-300); Magnesium 2.3 mg/dL (1.6-2.3); Potassium 5.5 mmol/L (3.4-5.0); Sodium 135 mmol/L (137-145)
[2023-05-12 01:05] LABS: Troponin I 0.113 ng/mL (0.000-0.034)
[2023-05-12 01:09] LABS: Prothrombin Time 13.2 Seconds (11.1-14.7)
[2023-05-12 01:10] LABS: Partial Thromboplastin Time 34.7 SECONDS (22.3-36.8)
[2023-05-12 01:30] LABS: Procalcitonin 0.7 ng/mL
--- NOTE | 2023-05-12 01:41 | PM.IMHP ---
H&P: HPI History of Present Illness Date/Time: 05/12/23 01:41 Chief Complaint: sob Narrative: 67-year-old female with past medical history significant for hypertension, end-stage renal disease on hemodialysis, coronary artery disease, bilateral transmetatarsal amputations. Patient comes to the emergency room after having 2 days of shortness of breath, chest pain, cough, nonproductive, patient had dialysis last on Friday. Denies any fevers, rigors, chills, nausea, vomiting. In emergency room patient was found to have systolic in the 200s. Preliminary workup was significant for chest x-ray was reported as: EXAMINATION:? XR chest 2V Exam Date/Time:? 05/11/2023 16:55 DIRECTOR FEDERAL HISTORY: chest pain, SOB SUBSTERNAL CHEST PAIN WITH DYSPNEA ? Comparison:? 05/05/2023. RESULT: Lines, tubes, and devices:? Stent over the right lower neck. Left chest pacer with intact leads. Lungs and pleura:? Stable moderate diffuse reticular opacities, bibasilar airspace disease, and moderate bilateral costophrenic angle blunting. Cardiomediastinal silhouette:? Stable. Other:? No acute osseous or upper abdominal finding. ? IMPRESSION: Unchanged pulmonary opacities likely representing moderate interstitial edema with moderate bilateral pleural effusions. Infection is not excluded. Review of Systems Review of Systems: Chest pain, shortness of breath, dry cough. Constitutional: Constitutional: Denies chills, Reports fatigue, Denies fever(s), Denies night sweats and Reports poor appetite Eyes: Eyes: Denies change in vision ENT: Denies dysphagia and Denies odynophagia Cardiovascular: Cardiovascular: Reports chest pain, Denies edema, Denies leg ulcers, Denies leg edema, Denies radiating jaw, neck or arm pain, Denies palpitations and Reports dyspnea Respiratory: Respiratory: Reports cough and Denies excessive phlegm production Gastrointestinal: Gastrointestinal: Denies abdominal pain, Denies dyspepsia, Denies heartburn, Denies nausea and Denies vomiting Genitourinary: Genitourinary: Denies dysuria Musculoskeletal: Musculoskeletal: Reports other (Transmetatarsal amputation bilateral) Integumentary/Breasts: Skin/Breast: Denies rash Neurologic: Denies focal weakness and Denies Sensory deficit (Neuro) Psychiatric: Psychiatric: Reports no additional psychiatric complaints and Reports as per HPI Endocrine: Endocrine: Denies cold intolerance, Denies fatigue, Denies flushing, Denies heat intolerance, Denies polyphagia, Denies polydipsia and Denies palpitations Hematologic/Lymphatic: Hematologic/Lymphatic: Reports no additional hematologic/lymphatic complaints and Reports as per HPI Allergic/Immunologic: Allergic/Immunologic: Reports no additional allergic/immunologic complaints and Reports as per HPI PMFSH Past Medical History Medical History CAD (coronary atherosclerotic disease) End stage renal disease on dialysis Surgical History Surgical History History of arteriovenostomy for renal dialysis bilateral History of transmetatarsal amputation of left foot History of transmetatarsal amputation of right foot Family History Family History Other Unknown family medical history Social History Social History Smoking status: Unknown if ever smoked Alcohol intake: unknown Substance use: unknown Substance use type: unknown Spiritual care concerns: No Meds Home Medications and Allergies Home Medications Medication Instructions Recorded Confirmed Type albuterol sulfate 90 mcg/actuation 2 puff inhalation Q6H PRN 05/03/23 05/03/23 History aerosol inhaler Shortness Of Breath Or Wheezing alprazolam 0.5 mg tablet 0.5 mg PO PRN PRN dialysis 05/03/23 05/03/23 History aspirin 81 mg
[2023-05-12] MEDS: ASPIRIN 81 MG CHEWABLE TABLET 324 MG PO (01:59)
[2023-05-12] MEDS: NITROGLYCERIN SL 0.4 MG TABLET SUBLINGUAL (01:59)
[2023-05-12] MEDS: HYDROmorphone HCL INJ (*CRX) 1 MG/ML SYR IV PUSH ×3 (02:00→20:08)
[2023-05-12] MEDS: hydrALAZINE HCL 20 MG/ML VIAL 10 MG IV PUSH ×2 (02:06→17:19)
--- NOTE | 2023-05-12 04:33 | ADMGEN ---
This patient, Dina Johnson, was admitted to IMU Room 206-02 @0430 Patient/family oriented to hospital policies and general routines including ID bracelet, bed and alarms, visiting hours, pain management, procedures, bathroom and other care routines, personal items, smoking policy, room service/diet, and visiting hours. Information on how to activate the Rapid Response Team has been discussed. Patient/Family are encouraged to report perceived risks to care and to ask questions if they do not understand what they are told or what they should do.
[2023-05-12 05:54] LABS: Troponin I 0.093 ng/mL (0.000-0.034)
[2023-05-12 08:44] LABS: Troponin I 0.082 ng/mL (0.000-0.034)
--- NOTE | 2023-05-12 09:30 | PM.CNNEP ---
Assessment and Plan Assessment and plan (1) End stage renal disease: Code(s): N18.6 - End stage renal disease Status: Chronic Assessment and Plan: HD today continue outpatient Mon/Fri/Fri dialysis schedule monitor electrolytes, volume status, and clearance follows with Dr. Enzo Shelton at [facility] (2) Acute respiratory failure: Code(s): J96.00 - Acute respiratory failure, unspecified whether with hypoxia or hypercapnia Status: Acute Assessment and Plan: due to pulmonary edema and volume overload admission CXR seems to support this complicated by reactive airway disease and possible COPD fluid removal with dialysis today follow respiratory status (3) Pulmonary edema: Code(s): J81.1 - Chronic pulmonary edema Status: Acute Assessment and Plan: possible flash pulmonary edema due to hypertensive urgency(?) this was seemed to occur on last hospitalization as well last [place] results noted fluid removal with dialysis (4) Hypertensive emergency: Code(s): I16.1 - Hypertensive emergency Status: Acute Assessment and Plan: blood pressure above 200 on presentation similar to last hospital presentation does report running out of her BP medications about a day ago follow trend of BP with ultrafiltration and resumption of BP medications (5) Anemia: Code(s): D64.9 - Anemia, unspecified Status: Chronic Assessment and Plan: due to ESRD H/H at goal hold Epogen for now follow trend of H/H I will continue follow the patient with you while she remains hospitalized and make further recommendations as needed. Thank you for allowing me to participate in the care this patient. History of Present Illness Reason for Consult Consult date: 05/12/23 Reason for consult: end stage renal disease Chief Complaint Chief complaint: ESRD on HD, fluid overload, hypertensive urgency History of Present Illness Narrative: The patient is a 67-year-old female with a past medical history as outlined below who was presented to [facility] Emergency room for further evaluation of increasing shortness of breath. The patient reports that her shortness of breath has been slowly worsening over the last few days without any improvement with conservative therapy including her supplemental oxygen and inhaler therapy. She actually presented to [facility] ER yesterday evening with the same symptoms including chest pain but then signed out AMA. She return to the emergency room earlier this morning as her symptoms seem to progressively get worse. Workup and evaluation emergency room demonstrated the patient to be quite hypertensive with systolic BP is greater than 200. Furthermore, she appeared to be in moderate respiratory distress which improved with control of her blood pressure with nitropaste and BiPAP therapy. Routine blood test demonstrated labs consistent with her known history of end-stage renal disease with no critical electrolyte abnormalities although her potassium was mildly elevated. Her initial troponin was mildly elevated as well and her chest x-ray demonstrated evidence of moderate interstitial edema along with moderate bilateral pleural effusions. She was subsequently admitted to the hospital for further evaluation and therapy. Renal consultation was requested due to her end-stage renal disease. The patient normally dialyzes on a Friday, Friday, Friday dialysis schedule at [facility] under the care of Dr. Enzo Shelton. She was just recently admitted and discharged from [facility] about a week ago for similar symptoms and presentation. At that time, her respiratory status had declined to the point where she required intubation and mechanical ventilation but then with aggressive fluid removal/ultrafiltration with dialysis, she was able to be extubated and subsequently was discharged. She
--- NOTE | 2023-05-12 09:30 | P.CONNP_ITS ---
Assessment and Plan Assessment and plan (1) End stage renal disease: Code(s): N18.6 - End stage renal disease Status: Chronic Assessment and Plan: * HD today * continue outpatient Fri/Fri/Fri dialysis schedule * monitor electrolytes, volume status, and clearance * follows with Dr. Enzo Shelton at [facility] (2) Acute respiratory failure: Code(s): J96.00 - Acute respiratory failure, unspecified whether with hypoxia or hypercapnia Status: Acute Assessment and Plan: * due to pulmonary edema and volume overload * admission CXR seems to support this * complicated by reactive airway disease and possible COPD * fluid removal with dialysis today * follow respiratory status (3) Pulmonary edema: Code(s): J81.1 - Chronic pulmonary edema Status: Acute Assessment and Plan: * possible flash pulmonary edema due to hypertensive urgency(?) * this was seemed to occur on last hospitalization as well * last [place] results noted * fluid removal with dialysis (4) Hypertensive emergency: Code(s): I16.1 - Hypertensive emergency Status: Acute Assessment and Plan: * blood pressure above 200 on presentation * similar to last hospital presentation * does report running out of her BP medications about a day ago * follow trend of BP with ultrafiltration and resumption of BP medications (5) Anemia: Code(s): D64.9 - Anemia, unspecified Status: Chronic Assessment and Plan: * due to ESRD * H/H at goal * hold Epogen for now * follow trend of H/H I will continue follow the patient with you while she remains hospitalized and make further recommendations as needed. Thank you for allowing me to participate in the care this patient. History of Present Illness Reason for Consult Consult date: 05/12/23 Reason for consult: end stage renal disease Chief Complaint Chief complaint: ESRD on HD, fluid overload, hypertensive urgency History of Present Illness Narrative: The patient is a 67-year-old female with a past medical history as outlined below who was presented to [facility] Emergency room for further evaluation of increasing shortness of breath. The patient reports that her shortness of breath has been slowly worsening over the last few days without any improvement with conservative therapy including her supplemental oxygen and inhaler therapy. She actually presented to [facility] ER yesterday evening with the same symptoms including chest pain but then signed out AMA. She return to the emergency room earlier this morning as her symptoms seem to progressively get worse. Workup and evaluation emergency room demonstrated the patient to be quite hypertensive with systolic BP is greater than 200. Furthermore, she appeared to be in moderate respiratory distress which improved with control of her blood pressure with nitropaste and BiPAP therapy. Routine blood test demonstrated labs consistent with her known history of end-stage renal disease with no critical electrolyte abnormalities although her potassium was mildly elevated. Her initial troponin was mildly elevated as well and her chest x-ray demonstrated evidence of moderate interstitial edema along with moderate bilateral pleural effusions. She was subsequently admitted to the hospital for further evaluation and therapy. Renal consultation was requested due to her end-stage renal disease. The patient normally dialyzes on a Friday, Friday, Friday dialysis schedule at [facility] under the care of Dr. Enzo Shelton.
--- NOTE | 2023-05-12 14:26 | PM.IMPN ---
Progress Note: A&P Assessment and Plan (1) Acute respiratory failure: Code(s): J96.00 - Acute respiratory failure, unspecified whether with hypoxia or hypercapnia Status: Acute Assessment and Plan: Patient requiring supplemental oxygen by nasal cannula Chest x-ray with unchanged pulmonary opacities likely representing moderate interstitial edema with moderate bilateral pleural effusion infection is not excluded. Continue to monitor Likely secondary to acute pulmonary edema Patient last dialyzed on Friday Uncontrolled hypertension no other etiology factors as well (2) Pulmonary edema: Code(s): J81.1 - Chronic pulmonary edema Status: Acute Assessment and Plan: Likely secondary to uncontrolled hypertension Cautious normalization blood pressure (3) Hypertensive emergency: Code(s): I16.1 - Hypertensive emergency Status: Acute Assessment and Plan: Restart home meds Continue to monitor (4) End stage renal disease on dialysis: Code(s): N18.6 - End stage renal disease; Z99.2 - Dependence on renal dialysis Status: Acute Assessment and Plan: Dialyzes Friday Nephrology consult Last dialysis on Friday (5) Elevated troponin: Code(s): R79.89 - Other specified abnormal findings of blood chemistry Status: Acute Assessment and Plan: Likely secondary to uncontrolled hypertension Will trend Considering patient with end-stage renal disease Plan Chronic anemia stable counts Troponin elevation flat trend. Likely due to underlying renal dysfunction Subjective Date/time seen: 05/12/23 14:26 Interval history: Seen during the dialysis today. Continued back pain led her to decide not to further undergo dialysis this morning. Breathing is better. Came with fluid overload Review of Systems Review of Systems: All systems reviewed & are unremarkable except as noted in HPI and below Exam Narrative: GENERAL: Well-appearing, well-nourished, and in no acute distress. HEAD: Normocephalic, atraumatic. EYES: PERRLA and EOMI. ENT: Nares clear, no rhinorrhea or epistaxis.? Mucous membranes moist. NECK: Supple. CHEST: Clear to auscultation.? No respiratory distress. HEART: Regular rate and rhythm.? No murmur heard.? Normal peripheral pulses. ABDOMEN: Soft, nontender, nondistended, normal active bowel sounds. EXTREMITIES: Normal range of motion.? No edema. SKIN: Warm, dry, no rash. NEURO: No focal deficits.? Alert and oriented x3. PSYCH: Normal mood and affect. ? Objective Data Vital Signs Vital Signs: Vital Signs - 24 hr 05/11/23 23:52 05/12/23 00:45 05/12/23 02:18 Temperature 97.7 F Pulse Rate 86 87 Respiratory Rate 20 20 Blood Pressure 121/102 H 203/101 H Pulse Oximetry 97 100 96 Oxygen Delivery Nasal Cannula Nasal Cannula Oxygen Flow Rate 3 3 05/12/23 02:19 05/12/23 03:29 05/12/23 06:00 Temperature Pulse Rate 85 85 74 Respiratory Rate 15 15 Blood Pressure 179/88 H 175/91 H Pulse Oximetry 94 94 Oxygen Delivery Oxygen Flow Rate 05/12/23 07:42 05/12/23 08:48 05/12/23 09:58 Temperature 97.4 F L 97.8 F Pulse Rate 71 88 73 Respiratory Rate 16 17 Blood Pressure 179/98 H 228/117 H 198/111 H Pulse Oximetry 98 Oxygen Delivery Oxygen Flow Rate 05/12/23 10:00 05/12/23 09:00 05/12/23 09:18 Temperature Pulse Rate 76 83 Respiratory Rate Blood Pressure 172/72 H 160/64 H Pulse Oximetry Oxygen Delivery Oxygen Flow Rate 3 05/12/23 09:30 05/12/23 09:45 05/12/23 10:00 Temperature Pulse Rate 82 73 86 Respiratory Rate Blood Pressure 193/82 H 137/64 177/71 H Pulse Oximetry Oxygen Delivery Oxygen Flow Rate 05/12/23 10:15 05/12/23 10:45 05/12/23 11:02 Temperature Pulse Rate 80 80 86 Respiratory Rate Blood Pressure 179/73 H 131/22 L 127/36 L Pulse Oximetry Oxygen Delivery Oxygen Flow Rate 05/12/23 11:00 05/12/23 11:0
--- NOTE | 2023-05-12 15:41 | ECG_ITS ---
Measurements Intervals [place] Rate: 87 P: 73 VA: 218 QRS: -52 QRSD: 93 T: 117 QT: 370 QTc: 446 Interpretive Statements SINUS RHYTHM WITH FIRST DEGREE AV BLOCK MARKED LEFT AXIS DEVIATION [QRS AXIS < -30] POSSIBLE ANTERIOR MYOCARDIAL INFARCTION , OF INDETERMINATE AGE [30 ms Q WAVE IN V3/V4, OR R < 0.2 mV IN V4] MODERATE T-WAVE ABNORMALITY, CONSIDER LATERAL ISCHEMIA [-0.1+ mV T WAVE IN I/aVL/V5/V6] ABNORMAL ECG COMPARED TO ECG 05/11/2023 17:34:44 NO SIGNIFICANT CHANGE Electronically Signed On 05-12-2023 17:09:57 [employer] by Warren Pritchett M.D.
[2023-05-12] MEDS: hydrALAZINE 10 MG TABLET PO (17:18)
[2023-05-12] MEDS: carvediloL 12.5 MG TABLET PO (17:18)
[2023-05-12] MEDS: Non-Formulary (sevelamer carbonate 0.8 gram ORAL powder in packet) 1 EACH PO (17:19)
[2023-05-12] MEDS: traMADol HCL (*CRX) 50 MG TABLET PO (18:40)
[2023-05-12] MEDS: FELODIPINE 5 MG TAB CR 10 MG PO (20:07)
[2023-05-12] MEDS: RANOLAZINE 500 MG TAB.ER.12H PO (20:08)
[2023-05-13] VITALS (19 sets, daily range): BP systolic 112–185; BP diastolic 62–87; PULSE 69–91; RESP 16–20; TEMP 36.1–36.8; O2SAT 91–100; BMI 18.0
[2023-05-13] MEDS: HYDROmorphone HCL INJ (*CRX) 1 MG/ML SYR IV PUSH ×3 (00:16→17:56)
[2023-05-13 05:07] LABS: Basophils Absolute Auto 0.1 K/mm3 (0.0-0.1); Basophils Percent Auto 1.3 % (0.2-1.2); Eosinophils Absolute Auto 0.6 K/mm3 (0-0.3); Eosinophils Percent Auto 7.6 % (0-4.4); Hematocrit 34.7 % (37.0-47.0); Hemoglobin 10.4 g/dL (12.0-15.0); Immature Granulocyte Absolute 0.04 K/mm3 (0.00-0.031); Immature Granulocyte Percent A 0.5 % (0-0.5); Lymphocytes Absolute Auto 1.15 K/mm3 (0.9-3.2); Lymphocytes Percent Auto 14.4 % (18.3-44.2); Mean Corpuscular Hemoglobin 30.8 pg (26-34); Mean Corpuscular Volume 102.7 fl (80-100); Mean Platelet Volume 10.8 fl (7.4-10.4); Monocytes Absolute Auto 0.7 K/mm3 (0.1-0.6); Monocytes Percent Auto 8.4 % (2.6-8.5); Neutrophils Absolute Auto 5.4 K/mm3 (1.3-6.7); Neutrophils Percent Auto 67.8 % (45.5-73.1); Platelet Count Result 337 k/mm3 (150-375); Red Blood Count 3.38 M/mm3 (4.2-5.4); Red Cell Distribution Width 16.6 % (11.5-14.5)
[2023-05-13 05:19] LABS: Alanine Aminotransferase 13 U/L (6-35); Albumin Level 3.9 g/dL (3.5-5.1); Alkaline Phosphatase 143 U/L (38-126); Anion Gap 13 mmol/L (8-16); Aspartate Amino Transferase 24 U/L (14-36); Bilirubin,Total 1.1 mg/dL (0.2-1.3); Blood Urea Nitrogen 38 mg/dL (7-17); Calcium 10.2 mg/dL (8.4-10.2); Carbon Dioxide 23 mmol/L (22-30); Chloride 102 mmol/L (98-107); Estimated CRCL calculation 9 ml/min; Estimated Glomerular Filt Rate 12; Glucose 105 mg/dL (65-110); Magnesium 2.4 mg/dL (1.6-2.3); Sodium 138 mmol/L (137-145)
--- NOTE | 2023-05-13 09:55 | P.PNNP_ITS ---
Progress Note: A&P Assessment and Plan (1) End stage renal disease: Code(s): N18.6 - End stage renal disease Status: Chronic Assessment and Plan: * HD tomorrow * continue outpatient Fri/Fri/Fri dialysis schedule * monitor electrolytes, volume status, and clearance * follows with Dr. Enzo Shelton at [facility] (2) Acute respiratory failure: Code(s): J96.00 - Acute respiratory failure, unspecified whether with hypoxia or hypercapnia Status: Acute Assessment and Plan: * improvement noted * due to pulmonary edema and volume overload * admission CXR seems to support this * complicated by reactive airway disease and possible COPD * fluid removal with dialysis as tolerated * follow respiratory status (3) Pulmonary edema: Code(s): J81.1 - Chronic pulmonary edema Status: Acute Assessment and Plan: * possible flash pulmonary edema due to hypertensive urgency(?) * this was what seemed to occur on last hospitalization as well * last Echo results noted * fluid removal with dialysis (4) Hypertensive emergency: Code(s): I16.1 - Hypertensive emergency Status: Acute Assessment and Plan: * blood pressure above 200 on presentation * similar to last hospital presentation * does report running out of her BP medications about a day prior to admission * follow trend of BP with ultrafiltration and resumption of BP medications * consider titration of olmesartan as needed (5) Anemia: Code(s): D64.9 - Anemia, unspecified Status: Chronic Assessment and Plan: * due to ESRD * H/H at goal * hold Epogen for now * follow trend of H/H Will continue to follow. Subjective Date/time seen: 05/13/23 09:55 Interval history: Follow-up for end stage renal disease on hemodialysis. Dialysis treatment stopped about an hour early yesterday per patient request due to pain (only received about 2.5 hours of dialysis); nevetheless, her breathing/respiratory status seems to be better; no apparent distress noted. Exam Narrative: General: thin and elderly female in NAD Heart: normal S1 and S2; no rub Lungs: clear anteriorly; decreased at bases Abdomen: soft, nontender, nondistended, positive bowel sounds Extremities: no cyanosis or clubbing; bilateral TMAs Skin: warm and dry Objective Data Vital Signs Vital Signs: Vital Signs Temp Pulse Resp BP Pulse Ox O2 Del Method O2 Flow Rate 05/13/23 07:57 97.8 F 71 16 161/86 H 100 05/13/23 05:55 78 05/13/23 04:00 98.2 F 73 18 112/67 94 05/13/23 04:00 84 05/13/23 01:56 89 05/13/23 00:00 75 05/12/23 23:49 98.5 F 73 18 114/84 92 05/12/23 22:00 95 05/12/23 20:00 78 05/12/23 20:00 99.1 F 95 18 121/101 H 98 05/12/23 18:00 90 05/12/23 16:00 82 05/12/23 16:00 97 Nasal Cannula 2 05/12/23 18:15 95 150/100 H 05/12/23 17:18 93 05/12/23 16:07 98.0 F 81 18 153/122 H 97 05/12/23 14:00 81 Intake/Output Intake/Output: Intake & Output 05/10/23 05/11/23 05/12/23 05/13/23 23:59 23:59 23:59 23:59 Intake Total 320 1080
--- NOTE | 2023-05-13 09:55 | PM.PNNEP ---
Progress Note: A&P Assessment and Plan (1) End stage renal disease: Code(s): N18.6 - End stage renal disease Status: Chronic Assessment and Plan: HD tomorrow continue outpatient Mon/Fri/Fri dialysis schedule monitor electrolytes, volume status, and clearance follows with Dr. Enzo Shelton at [facility] (2) Acute respiratory failure: Code(s): J96.00 - Acute respiratory failure, unspecified whether with hypoxia or hypercapnia Status: Acute Assessment and Plan: improvement noted due to pulmonary edema and volume overload admission CXR seems to support this complicated by reactive airway disease and possible COPD fluid removal with dialysis as tolerated follow respiratory status (3) Pulmonary edema: Code(s): J81.1 - Chronic pulmonary edema Status: Acute Assessment and Plan: possible flash pulmonary edema due to hypertensive urgency(?) this was what seemed to occur on last hospitalization as well last Echo results noted fluid removal with dialysis (4) Hypertensive emergency: Code(s): I16.1 - Hypertensive emergency Status: Acute Assessment and Plan: blood pressure above 200 on presentation similar to last hospital presentation does report running out of her BP medications about a day prior to admission follow trend of BP with ultrafiltration and resumption of BP medications consider titration of olmesartan as needed (5) Anemia: Code(s): D64.9 - Anemia, unspecified Status: Chronic Assessment and Plan: due to ESRD H/H at goal hold Epogen for now follow trend of H/H Will continue to follow. Subjective Date/time seen: 05/13/23 09:55 Interval history: Follow-up for end stage renal disease on hemodialysis. Dialysis treatment stopped about an hour early yesterday per patient request due to pain (only received about 2.5 hours of dialysis); nevetheless, her breathing/respiratory status seems to be better; no apparent distress noted. Exam Narrative: General: thin and elderly female in NAD Heart: normal S1 and S2; no rub Lungs: clear anteriorly; decreased at bases Abdomen: soft, nontender, nondistended, positive bowel sounds Extremities: no cyanosis or clubbing; bilateral TMAs Skin: warm and dry Objective Data Vital Signs Vital Signs: Vital Signs Temp Pulse Resp BP Pulse Ox O2 Del Method O2 Flow Rate 05/13/23 07:57 97.8 F 71 16 161/86 H 100 05/13/23 05:55 78 05/13/23 04:00 98.2 F 73 18 112/67 94 05/13/23 04:00 84 05/13/23 01:56 89 05/13/23 00:00 75 05/12/23 23:49 98.5 F 73 18 114/84 92 05/12/23 22:00 95 05/12/23 20:00 78 05/12/23 20:00 99.1 F 95 18 121/101 H 98 05/12/23 18:00 90 05/12/23 16:00 82 05/12/23 16:00 97 Nasal Cannula 2 05/12/23 18:15 95 150/100 H 05/12/23 17:18 93 05/12/23 16:07 98.0 F 81 18 153/122 H 97 05/12/23 14:00 81 Intake/Output Intake/Output: Intake & Output 05/10/23 05/11/23 05/12/23 05/13/23 23:59 23:59 23:59 23:59 Intake Total 320 1080 Output Total 2509 Balance -2189 1080 Meds/Results Medications: Active Medications Generic Name Dose Route Start Last Admin Trade Name Freq PRN Reason Stop Dose Admin Albuterol 2 puff 05/12/23 14:38 Albuterol Sulfate (*Sp) Aerosol 1 Puff INHALATION Q6H PRN Shortness Of Breath Or Wheezing Alprazolam 0.5 mg 05/12/23 14:38 Alprazolam (*Crx) 0.5 Mg Tablet PO PRN PRN dialysis Aspirin 81 mg 05/13/23 09:00 05/13/23 10:32 Aspirin 81 Mg Enteric Tablet PO 81 mg DAILY ARNOLD Administration Carvedilol 12.5 mg 05/12/23 17:00 05/13/23 10:32 Carvedilol 12.5 Mg Tablet PO 12.5 mg BID ARNOLD Administration Escitalopram Oxalate 10 mg 05/13/23 09:00 05/13/23 10:33 Escitalopram Oxalate 10 Mg Tablet
[2023-05-13] MEDS: ASPIRIN 81 MG ENTERIC TABLET PO (10:32)
[2023-05-13] MEDS: carvediloL 12.5 MG TABLET PO ×2 (10:32→17:53)
[2023-05-13] MEDS: hydrALAZINE 10 MG TABLET PO ×2 (10:33→17:53)
[2023-05-13] MEDS: ESCITALOPRAM OXALATE 10 MG TABLET PO (10:33)
[2023-05-13] MEDS: RANOLAZINE 500 MG TAB.ER.12H PO ×2 (10:34→20:41)
[2023-05-13] MEDS: OLMESARTAN MEDOXOMIL 10 MG TABLET PO (10:34)
[2023-05-13] MEDS: ONDANSETRON INJ 4 MG/2 ML VIAL IV PUSH (13:16)
[2023-05-13] MEDS: traMADol HCL (*CRX) 50 MG TABLET PO ×2 (13:20→20:40)
--- NOTE | 2023-05-13 17:08 | PM.IMPN ---
Progress Note: A&P Assessment and Plan (1) Acute respiratory failure: Code(s): J96.00 - Acute respiratory failure, unspecified whether with hypoxia or hypercapnia Status: Acute Assessment and Plan: Patient requiring supplemental oxygen by nasal cannula Chest x-ray with unchanged pulmonary opacities likely representing moderate interstitial edema with moderate bilateral pleural effusion infection is not excluded. Continue to monitor Likely secondary to acute pulmonary edema Patient last dialyzed on Friday Uncontrolled hypertension no other etiology factors as well Dialyzed 05/12/2023 Nephrology consulted and continue inpatient hemodialysis (2) Pulmonary edema: Code(s): J81.1 - Chronic pulmonary edema Status: Acute Assessment and Plan: Likely secondary to uncontrolled hypertension Cautious normalization blood pressure (3) Hypertensive emergency: Code(s): I16.1 - Hypertensive emergency Status: Acute Assessment and Plan: Restart home meds Continue to monitor (4) End stage renal disease on dialysis: Code(s): N18.6 - End stage renal disease; Z99.2 - Dependence on renal dialysis Status: Acute Assessment and Plan: Dialyzes Friday Nephrology consult Last dialysis on Friday Dialyzed partially 05/12/2023 (5) Elevated troponin: Code(s): R79.89 - Other specified abnormal findings of blood chemistry Status: Acute Assessment and Plan: Likely secondary to uncontrolled hypertension Will trend Considering patient with end-stage renal disease Plan Chronic anemia stable counts Troponin elevation flat trend. Likely due to underlying renal dysfunction back pain: low back. no injury. will get xray lumbar spine to further evaluate Subjective Date/time seen: 05/13/23 17:08 Interval history: Overall feeling better. Back pain still bothers. Labs reviewed. Shortness of breath has improved. Review of Systems Review of Systems: All systems reviewed & are unremarkable except as noted in HPI and below Exam Narrative: GENERAL: Well-appearing, well-nourished, and in no acute distress. HEAD: Normocephalic, atraumatic. EYES: PERRLA and EOMI. ENT: Nares clear, no rhinorrhea or epistaxis.? Mucous membranes moist. NECK: Supple. CHEST: Coarse breath sound with basilar crackles? No respiratory distress. HEART: Regular rate and rhythm.? No murmur heard.? Normal peripheral pulses. ABDOMEN: Soft, nontender, nondistended, normal active bowel sounds. EXTREMITIES: Normal range of motion.? No edema. SKIN: Warm, dry, no rash. NEURO: No focal deficits.? Alert and oriented x3. PSYCH: Normal mood and affect. ? Objective Data Vital Signs Vital Signs: Vital Signs - 24 hr 05/12/23 17:18 05/12/23 18:15 05/12/23 18:00 Temperature Pulse Rate 93 95 90 Respiratory Rate Blood Pressure 150/100 H Pulse Oximetry Oxygen Delivery Oxygen Flow Rate 05/12/23 20:00 05/12/23 20:00 05/12/23 22:00 Temperature 99.1 F Pulse Rate 95 78 95 Respiratory Rate 18 Blood Pressure 121/101 H Pulse Oximetry 98 Oxygen Delivery Oxygen Flow Rate 05/12/23 23:49 05/13/23 00:00 05/13/23 01:56 Temperature 98.5 F Pulse Rate 73 75 89 Respiratory Rate 18 Blood Pressure 114/84 Pulse Oximetry 92 Oxygen Delivery Oxygen Flow Rate 05/13/23 04:00 05/13/23 04:00 05/13/23 05:55 Temperature 98.2 F Pulse Rate 84 73 78 Respiratory Rate 18 Blood Pressure 112/67 Pulse Oximetry 94 Oxygen Delivery Oxygen Flow Rate 05/13/23 07:57 05/13/23 10:32 05/13/23 11:37 Temperature 97.8 F 98.2 F Pulse Rate 71 71 91 Respiratory Rate 16 20 Blood Pressure 161/86 H 185/87 H Pulse Oximetry 100 97 Oxygen Delivery Oxygen Flow Rate 05/13/23 08:00 05/13/23 12:00 05/13/23 08:00 Temperature Pulse Rate 89 Respiratory Rate Blood Pressure Pulse Oximetry 100 97 Oxygen Delivery Can
[2023-05-13] MEDS: FELODIPINE 5 MG TAB CR 10 MG PO (20:40)
[2023-05-13] MEDS: ALPRAZolam (*CRX) 0.5 MG TABLET PO (20:41)
[2023-05-14] VITALS (9 sets, daily range): BP systolic 75–127; BP diastolic 36–64; PULSE 60–69; RESP 16–25; TEMP 36.2; O2SAT 91–95
[2023-05-14] MEDS: HYDROmorphone HCL INJ (*CRX) 1 MG/ML SYR IV PUSH (03:21)
[2023-05-14 08:41] LABS: Alveolar/Arterial O2 Gradient 98.8 mmHg; Base Excess ABG -7.8 mEq/l (+/-2.0); Fractional Inspired Oxygen 32 %; HCO3 ABG 21.1 mEq/l (22.0-26.0); Oxygen Content ABG 12.9 %vol (16.0-22.0); PCO2 ABG 59.8 mmHg (35.0-45.0); PO2 ABG 59.4 mmHg (80.0-100.0); PO2 FiO2 Ratio Arterial Blood 1.86 %; Total Hemoglobin 11.4 g/dL (12.0-18.0)
[2023-05-14] MEDS: SODIUM CHLORIDE 0.9% IV 500 ML 999 ML IV CONT (08:43)
--- NOTE | 2023-05-14 08:47 | ECG_ITS ---
Measurements Intervals [place] Rate: 70 P: 269 NC: 308 QRS: -67 QRSD: 183 T: 108 QT: 534 QTc: 577 Interpretive Statements ELECTRONIC ATRIAL PACEMAKER ELECTRONIC VENTRICULAR PACEMAKER NO FURTHER INTERPRETATION POSSIBLE COMPARED TO ECG 05/12/2023 00:01:50 ELECTRONIC ATRIAL AND VENTRICULAR PACING HAS REPLACED SINUS RHYTHM Electronically Signed On 05-14-2023 15:53:09 MILIEU THERAPIST by Warren Pritchett M.D.
[2023-05-14 08:51] LABS: pH ABG 7.166 (7.350-7.450)
[2023-05-14 08:52] LABS: Oxygen Saturation ABG 82.9 % (95.0-100.0); Oxyhemoglobin 80.2 % THb (90.0-100.0)
[2023-05-14 08:53] LABS: Device NASAL CANNULA; Modified Allen's Test Pass; Site Drawn RIGHT RADIAL
[2023-05-14] MEDS: NALOXONE HCL INJ 2 MG/2 ML AMP (09:00)
[2023-05-14] MEDS: SODIUM CHLORIDE 0.9% IV 250 ML 999 ML (09:25)
[2023-05-14] MEDS: SODIUM CHLORIDE 0.9% IV 500 ML 999 ML (10:00)
--- NOTE | 2023-05-14 10:02 | PM.IMPN ---
Progress Note: A&P Assessment and Plan (1) Elevated troponin: Code(s): R79.89 - Other specified abnormal findings of blood chemistry Status: Acute (2) Hypertension: Code(s): I10 - Essential (primary) hypertension Status: Acute (3) Anemia: Code(s): D64.9 - Anemia, unspecified Status: Chronic (4) End stage renal disease: Code(s): N18.6 - End stage renal disease Status: Chronic (5) Hypertensive emergency: Code(s): I16.1 - Hypertensive emergency Status: Acute (6) Pulmonary edema: Code(s): J81.1 - Chronic pulmonary edema Status: Acute (7) Acute respiratory failure with hypoxia and hypercapnia: Code(s): J96.01 - Acute respiratory failure with hypoxia; J96.02 - Acute respiratory failure with hypercapnia Status: Acute Plan 67F w/ PMH HTN, ESRD on HD MWF, CAD, s/p b/l transmetatarsal amputations, s/p PPM presented on 05/12/23 with 2 day os shortness of breath, non productive cough. # acute delirium - 05/14 am received 1mg Dilaudid, patient woke up thrashing after 0.4mg IV Narcan administered. dc'ed all narcotics. continue to monitor. Son, Stepan Conn notified, all questions answered to satisfaction. Mr. Conn reports she lives with her brother and is typically normal at baseline. She would want full care, full code. - pending CT head to rule out stroke # acute hypoxic hypercarbic respiratory failure - Initially presented with pulmonary edema, likely due to hypertensive emergency as she ran out of her BP meds a few days prior to admission. She remained on 3L NC however on 05/14 AM required BIPAP/facemask for further deterioration. This was likely due to Dilaudid however. Cont to wean as tolerated. It appears she has mod b/l pleural effusions so if unable to wean off o2 then will likely need b/l thoracentesis. - ABG 05/14 am with PCO2 of 60. This is new for her. Possible underlying COPD. will treat with solumedrol and duonebs scheduled for now. Repeat ABG in afternoon and AM. # ESRD on HD MWF - last dialysis 05/12. nephrology following. - anemia: CTM # sepsis - during 05/14 AM events after Dilaudid she has low blood pressures. this could be due to Dilaudid however will conduct full workup with lactate, procal, blood cultures, CT chest w/o contrast to assess for abx need. so far received 1250cc bolus, if still low will likely need pressors and ICU transfer # hypertensive emergency - 05/14, resolved. BP now low. all BP meds stopped including PRNs # low back pain - lumbar x ray without acute abnormalities. - AAA measuring approx 4.3cm. serial monitoring as outpatient. FEN: saline lock IV, renal diet GI prophylaxis: not indicated currently DVT prophylaxis: HSC Lines: pIV, LUE AV fistula Code Status: Full Code Dispo: guarded, serious. Son, Stepan Conn notified AM of 05/14 of pt's condition. More than 100 minutes spent on patient care, family interaction and chart review. Subjective Date/time seen: 05/14/23 10:02 Interval history: During rounds, patient altered, unresponsive but protecting airway. Nurse, OT, and RT all at bedside and Dr. Rider eventually coming to assist. After 0.4mg of Narcan IV the patient woke up, thrashing. Review of Systems Review of Systems: All systems reviewed & are unremarkable except as noted in HPI and below ROS unobtainable: Yes unobtainable due to medical condition Exam Const: Other: Agitated. Rarely follows commands. Eyes: Pupils: Equal, round and reactive pupils present Resp: Effort & Inspection: normal respiratory effort Auscultation: clear to auscultation bilaterally Cardio: Rate: regular rate Rhythm: regular rhythm Heart sounds: no gallops, no murmurs and no rubs GI: GI Palp: Yes Soft to palpation and No Tenderness to palpation present (GI) Extrem: General: no edema Objective Data Vital Signs Vital Signs: Vital Signs - 24 hr 05/13/23 10:32 05/13/23 11:37 05/13/23 12:00 T
[2023-05-14 10:47] LABS: Basophils Absolute Auto 0.1 K/mm3 (0.0-0.1); Basophils Percent Auto 0.5 % (0.2-1.2); Eosinophils Absolute Auto 0.2 K/mm3 (0-0.3); Eosinophils Percent Auto 1.6 % (0-4.4); Hematocrit 33.7 % (37.0-47.0); Hemoglobin 9.5 g/dL (12.0-15.0); Immature Granulocyte Absolute 0.09 K/mm3 (0.00-0.031); Lymphocytes Absolute Auto 1.28 K/mm3 (0.9-3.2); Lymphocytes Percent Auto 13.6 % (18.3-44.2); Mean Corpuscular HGB Conc 28.2 g/dl (32-36); Mean Corpuscular Hemoglobin 30.9 pg (26-34); Mean Corpuscular Volume 109.8 fl (80-100); Mean Platelet Volume 10.9 fl (7.4-10.4); Monocytes Absolute Auto 0.5 K/mm3 (0.1-0.6); Monocytes Percent Auto 5.1 % (2.6-8.5); Neutrophils Absolute Auto 7.4 K/mm3 (1.3-6.7); Neutrophils Percent Auto 78.2 % (45.5-73.1); Platelet Count Result 272 k/mm3 (150-375); Red Blood Count 3.07 M/mm3 (4.2-5.4); Red Cell Distribution Width 16.4 % (11.5-14.5); White Blood Count 9.4 K/mm3 (4.5-10.0)
[2023-05-14 11:05] LABS: Alanine Aminotransferase 15 U/L (6-35); Albumin Level 3.6 g/dL (3.5-5.1); Alkaline Phosphatase 113 U/L (38-126); Anion Gap 14 mmol/L (8-16); Aspartate Amino Transferase 51 U/L (14-36); Blood Urea Nitrogen 48 mg/dL (7-17); Calcium 9.1 mg/dL (8.4-10.2); Carbon Dioxide 20 mmol/L (22-30); Chloride 100 mmol/L (98-107); Estimated CRCL calculation 7 ml/min; Estimated Glomerular Filt Rate 8; Glucose 112 mg/dL (65-110); Magnesium 2.6 mg/dL (1.6-2.3); Potassium 6.6 mmol/L (3.4-5.0); Sodium 134 mmol/L (137-145)
[2023-05-14 11:10] LABS: Lactic Acid Reflex 4.4 mmol/L (0.7-2.0)
--- NOTE | 2023-05-14 11:30 | P.CDI_ITS ---
severe protein calorie malnutrition CDI Query Clarification Request BMI 18.0 Nutritional Diagnostic Statement Severe protein calorie malnutrition related to inadequate energy intake as evidenced by Pt report of poor appetite , significant weight loss of -28% x 6 months, NFPR findings for subcutaneous fat loss and muscle wasting. Please refer to the comprehensive nutrition assessment for further information. Please clarify severity of protein calorie malnutrition if known: * Mild * Moderate * Severe * Other/Unspecified
[2023-05-14 11:58] LABS: Procalcitonin 0.7 ng/mL
[2023-05-14 11:59] LABS: Troponin I 0.312 ng/mL (0.000-0.034)
[2023-05-14 13:44] LABS: Reflex Lactic Acid Yes or No Add Lactic
--- NOTE | 2023-05-14 18:00 | PC.NURSE ---
To patients room with Dr. Morris at approximately 0830, patient lethargic and not responding to verbal commands. NARAYAN Newman to patients room to assist. Asked Dr. Morris if he would like Dr. Rider to come and evaluate the patient. Patients blood pressures low 84/63 and Sp02 obtained was 69 with not a good wave form, received orders for stat ABG and fluid bolus 500mL. Respiratory Therapy to room, orders for bipap for patient. Dr. Morris stated he will update family on patients condition. Dr. Rider to patients bedside to evaluate patient, orders for Narcan. Patient is oriented only to name, keeps pulling bipap off, stating get this off of me and flailing her arms. RT switches patient to a Non-rebreather mask. Patient keeps stating that she is in pain. Blood pressures remain low 90/36, received another order for 250mL fluid bolus. Patient continues to flail and yell that she is in pain. Received an order for a third 500mL fluid bolus, blood pressure after was 75/42 Sp02 90%, reported to Dr. Morris. 1103 NARAYAN Newman was in the patients room, evaluating LOC. Blood pressure still low, Dr. Morris in ICU consulting Dr. Rider. 1108 Lab reported critcal potassium of 6.6. In room with Dr. Morris, patient unresponsive, called a rapid response, unable to obtain pulse, called a code blue.
--- NOTE | 2023-05-16 18:51 | P.DN_ITS ---
Discharge Summary Date and Time Date of : 05/14/23 Time of : 11:33 Provider Pronounced By: Michelle Malik RN Paty Joseph RN Probable Cause of Probable Cause of : acute hypoxic hypercapnic respiratory failure Summary Hospital Course: 7F w/ PMH HTN, ESRD on HD MWF, CAD, s/p b/l transmetatarsal amputations, s/p PPM presented on 05/12/23 with 2 day of shortness of breath, non productive cough. The patient ran out of her BP medications and was admitted with hypertensive emergency and acute hypoxic hypercarbic respiratory failure and cardiopulmonary arrest followed. 25 minutes of ACLS was performed without ROSC. Additional Data Confirmation of as documented by pronouncing clinician: Pupillary Reflex, Palpable Pulses, Response to Stimuli, Heart Tones and Breath Sounds Family: contacted Name of Provider Notified: Dr. Morris Time Provider Notified: 11:33 Was code activated?: Yes Provider Requests Autopsy: No Family Requests Autopsy: No [employer]ment Manager Notified: Yes Date [facility] Notified of : 05/14/23 Time [facility] Notified of : 14:00
== END 2023-05-14 11:33 | disposition expired | DRG 304 ==
LOC: ANHED 05-12 01:51 → ANHIMU 05-12 03:11
PROVIDERS: General Practice; Internal Medicine; Admitting Provider Internal Medicine; Emergency Provider Emergency Medicine; Visit Provider Internal Medicine
DX: I16.1 Hypertensive emergency (principal); E43 Unspecified severe protein-calorie malnutrition; J81.0 Acute pulmonary edema; N18.6 End stage renal disease; J96.01 Acute respiratory failure with hypoxia; J96.02 Acute respiratory failure with hypercapnia; Z68.1 Body mass index [BMI] 19.9 or less, adult; I12.0 Hypertensive chronic kidney disease with stage 5 chronic kidney disease or end stage renal disease; I25.10 Atherosclerotic heart disease of native coronary artery without angina pectoris; I46.9 Cardiac arrest, cause unspecified; E87.70 Fluid overload, unspecified; R41.0 Disorientation, unspecified; R79.89 Other specified abnormal findings of blood chemistry; Z99.2 Dependence on renal dialysis; Z79.82 Long term (current) use of aspirin; Z89.432 Acquired absence of left foot; Z89.431 Acquired absence of right foot
CPT/HCPCS: 31500; 36415; 36600; 71045; 71046; 72100; 80053; 81001; 82805; 83605; 83690; 83735; 83880; 84145; 84484; 85025; 85610; 85730; 87040; 87637; 92950; 93005; 94002; 96374; 96375; 96376; 99284; 99285; A9270; C1751; G0257; G0378; J0360; J1170; J2310; J2405; J7030; J7040; J7050